=== PATIENT | female | born 1990 | race African-American/Black ===

== ENCOUNTER 2020-03-17 19:25 | Emergency (ER) | payer OTHER ==
[2020-03-17 19:56] VITALS: BP 107/77; PULSE 98; TEMP 97.8; BMI 18.8
[2020-03-17] MEDS ORDERED: SODIUM CHLORIDE 1,000 ML IV STA (21:18)
[2020-03-17 22:18] LABS: EOS % 2.3 % (0-4.5); HEMATOCRIT 29.9 % (32.4-45.2); HEMOGLOBIN 8.9 GM/dL (10.7-15.3); LYMPH % 19.2 % (8-40); MCH 20.5 pg (25.7-33.7); MCHC 29.6 g/dl (32.0-36.0); MEAN CELL VOLUME 69.2 fl (80-96); MEAN PLT VOLUME 7.6 fl (7.5-11.1); MONO % 5.4 % (3.8-10.2); NEUT % 72.1 % (42.8-82.8); PLATELET COUNT 468 K/MM3 (134-434); RBC 4.33 M/mm3 (3.60-5.2); RDW 16.6 % (11.6-15.6); WHITE BLOOD COUNT 14.6 K/mm3 (4.0-10.0)
[2020-03-17 22:28] LABS: POTASSIUM 3.8 mmol/L (3.5-5.1)
[2020-03-17 22:30] LABS: CALCIUM 9.1 mg/dL (8.5-10.1)
[2020-03-17 22:31] LABS: MAGNESIUM 2.2 mg/dL (1.8-2.4)
[2020-03-17 22:34] LABS: CREATININE 0.7 mg/dL (0.55-1.3)
[2020-03-17 22:35] LABS: BILIRUBIN,TOTAL 0.3 mg/dL (0.2-1)
[2020-03-17 22:36] LABS: TOT PROT 9.7 g/dl (6.4-8.2)
[2020-03-17 23:25] LABS: HIV INTERPRETATION NEGATIVE (NEGATIVE)
[2020-03-17] MEDS ORDERED: PIPERACILLIN/TAZOBACTAM 4.5 GM VIAL IVPB ONE (23:45)
[2020-03-17] MEDS ORDERED: VANCOMYCIN 1,000 MG in DEXTROSE 5%-WATER - 250 ML IVPB ONE (23:45)
[2020-03-18] MEDS ORDERED: PIPERACILLIN/TAZOB 4.5 GM 4.5 GM/100 ML BAG IVPB ONE (00:02)
[2020-03-18] MEDS ORDERED: VANCOMYCIN 1 GRAM (PRE-DOCKED) 1,000 MG/250 ML BAG IVPB ONE (00:03)
[2020-03-18 00:42] LABS: EPI CELLS 25 /uL (0-25.1); HYALINE CASTS 4 /uL (0-3.1); PH,URINE 5.5 (5.0-8.0); URINE APPEARANCE CLEAR; URINE BACTERIA 206 /uL (0-1359); URINE BILIRUBIN NEGATIVE (NEGATIVE); URINE COLOR YELLOW; URINE GLUCOSE (UA) NEGATIVE (NEGATIVE); URINE KETONE NEGATIVE (NEGATIVE); URINE LEUK ESTERASE NEGATIVE (NEGATIVE); URINE NITRITE NEGATIVE (NEGATIVE); URINE PROTEIN 1+ (NEGATIVE); URINE RBC 5 /uL (0-23.9); URINE WBC 57 /uL (0-25.8)
== END 2020-03-18 01:43 | disposition left against medical advice (07) ==
LOC: JER 19:25
PROC: 3E03329 Introduction of Other Anti-infective into Peripheral Vein, Percutaneous Approach (ICD-10-PCS; principal; 2020-03-17)
PROC: 3E03329 Introduction of Other Anti-infective into Peripheral Vein, Percutaneous Approach (ICD-10-PCS; 2020-03-17)
PROC: 3E0337Z Introduction of Electrolytic and Water Balance Substance into Peripheral Vein, Percutaneous Approach (ICD-10-PCS; 2020-03-17)
DX: L03.317 Cellulitis of buttock (principal); K61.0 Anal abscess; N61.1 Abscess of the breast and nipple
CPT/HCPCS: 36415; 74177-TC; 80053; 81003; 83735; 84703; 85025; 87040; 87070; 87076; 87186; 87205; 87389; 99285-25; Q9967

== ENCOUNTER 2020-06-30 04:13 | Inpatient (IN) | payer OTHER ==
[2020-06-30] MEDS ORDERED: CLINDAMYCIN IVPB 300 MG in DEXTROSE 5%-WATER - 48 ML IVPB ONE (05:00)
[2020-06-30] MEDS ORDERED: CLINDAMYCIN 600MG PREMIX IVPB 600 MG/50 ML BAG IVPB ONE ×4 (05:18→15:46)
[2020-06-30] MEDS ORDERED: ONDANSETRON 4 MG/2 ML VIAL IVPUSH ONE (05:20)
[2020-06-30] MEDS ORDERED: morphine CARPU-JECT 4 MG/1 ML DISP.SYRIN IVPUSH ONE (05:20)
[2020-06-30] MEDS ORDERED: ONDANSETRON 4 MG/2 ML VIAL ONE (05:22)
[2020-06-30] MEDS ORDERED: morphine SULFATE 4 MG/ML VIAL ONE (05:22)
[2020-06-30] MEDS ORDERED: SODIUM CHLORIDE 0.9% 500 ML INFUS.BAG IV ONE (05:23)
[2020-06-30 05:51] LABS: BASO % 0.5 % (0-2.0); EOS % 1.2 % (0-4.5); HEMATOCRIT 25.7 % (32.4-45.2); MEAN CELL VOLUME 67.6 fl (80-96); MEAN PLT VOLUME 7.2 fl (7.5-11.1); MONO % 3.5 % (3.8-10.2); NEUT % 85.8 % (42.8-82.8); PLATELET COUNT 591 K/MM3 (134-434); RBC 3.81 M/mm3 (3.60-5.2); RDW 16.5 % (11.6-15.6); WHITE BLOOD COUNT 22.2 K/mm3 (4.0-10.0)
[2020-06-30 06:11] LABS: POTASSIUM 3.9 mmol/L (3.5-5.1)
[2020-06-30 06:12] LABS: ALBUMIN 2.7 g/dl (3.4-5.0); BLOOD UREA NITROGEN 10.1 mg/dL (7-18); CALCIUM 9.2 mg/dL (8.5-10.1); INR 1.47 (0.83-1.09); PROTHROMBIN TIME (PATIENT) 17.9 SEC (9.7-13.0)
[2020-06-30 06:15] LABS: ACTIVATED PTT 31.2 SECONDS (25.2-36.5); CREATININE 0.8 mg/dL (0.55-1.3)
[2020-06-30 06:17] LABS: BILIRUBIN,TOTAL 0.4 mg/dL (0.2-1); TOT PROT 9.9 g/dl (6.4-8.2)
[2020-06-30] MEDS ORDERED: ENOXAPARIN NA (PORCINE) 40 MG/0.4 ML DISP.SYRIN SQ ONE (09:01)
[2020-06-30] MEDS: LACTATED RINGERS SOLUTION 1,000 ML IV SCH (09:25)
[2020-06-30] MEDS: ACETAMINOPHEN 1000 MG/100 ML VIAL (NON FORMULARY) IVPB PRN ×2 (09:26→23:04)
[2020-06-30] MEDS: CLINDAMYCIN 600MG PREMIX IVPB 600 MG/50 ML BAG IVPB SCH ×4 (09:26→21:07)
[2020-06-30] MEDS: ENOXAPARIN NA (PORCINE) 40 MG/0.4 ML DISP.SYRIN SQ SCH (09:26)
[2020-06-30 12:04] LABS: ANISOCYTOSIS 1+; MACROCYTOSIS 0; PLATELET ESTIMATE INCREASED; ROULEAU 1+
[2020-06-30] MEDS ORDERED: SERTRALINE HCL 50 MG TABLET (FP) ONE (12:25)
[2020-06-30] MEDS: SERTRALINE HCL 25 MG TABLET (FP) PO SCH (12:34)
[2020-06-30] MEDS: PIPERACILLIN/TAZOB 3.375 GM 3.375 GM in DEXTROSE 5%-WATER - 50 ML IVPB SCH (18:21)
[2020-07-01] MEDS ORDERED: PIPERACILLIN/TAZOBACTAM 3.375 GM VIAL IVPB ONE ×3 (02:11→17:14)
[2020-07-01] MEDS ORDERED: DEXTROSE 5%-WATER - 50 ML IVPB ONE ×3 (02:11→17:14)
[2020-07-01] MEDS: PIPERACILLIN/TAZOB 3.375 GM 3.375 GM in DEXTROSE 5%-WATER - 50 ML IVPB SCH ×3 (02:38→17:22)
[2020-07-01] MEDS: CLINDAMYCIN 600MG PREMIX IVPB 600 MG/50 ML BAG IVPB SCH ×4 (02:38→23:30)
[2020-07-01] MEDS ORDERED: LIDO 2%/EPI 1:200000 PRESRVFRE (20 ML SDVIAL) INF ONE (09:00)
[2020-07-01] MEDS: SERTRALINE HCL 25 MG TABLET (FP) PO SCH (09:17)
[2020-07-01] MEDS: ENOXAPARIN NA (PORCINE) 40 MG/0.4 ML DISP.SYRIN SQ SCH (09:17)
[2020-07-01] MEDS: LACTATED RINGERS SOLUTION 1,000 ML IV SCH (10:07)
[2020-07-01] MEDS: ACETAMINOPHEN 325 MG TABLET (FP) PO PRN ×2 (10:36→19:01)
[2020-07-01 11:49] LABS: BASO % 0.5 % (0-2.0); EOS % 1.6 % (0-4.5); HEMATOCRIT 21.7 % (32.4-45.2); LYMPH % 10.5 % (8-40); MCH 20.6 pg (25.7-33.7); MCHC 30.2 g/dl (32.0-36.0); MEAN PLT VOLUME 7.6 fl (7.5-11.1); NEUT % 82.4 % (42.8-82.8); PLATELET COUNT 447 K/MM3 (134-434); RDW 16.3 % (11.6-15.6); WHITE BLOOD COUNT 16.8 K/mm3 (4.0-10.0)
[2020-07-01 11:53] LABS: HEMOGLOBIN 6.6 GM/dL (10.7-15.3)
[2020-07-01 12:21] LABS: CALCIUM 8.4 mg/dL (8.5-10.1)
[2020-07-01 12:22] LABS: BLOOD UREA NITROGEN 6.8 mg/dL (7-18); MAGNESIUM 1.8 mg/dL (1.8-2.4)
[2020-07-01 12:25] LABS: CREATININE 0.6 mg/dL (0.55-1.3); PHOSPHOROUS 2.9 mg/dL (2.5-4.9)
[2020-07-01 12:26] LABS: BILIRUBIN,TOTAL 0.4 mg/dL (0.2-1)
[2020-07-01 12:29] LABS: ALBUMIN 2.1 g/dl (3.4-5.0); TOT PROT 7.9 g/dl (6.4-8.2)
[2020-07-01 13:52] LABS: INR 1.73 (0.83-1.09)
[2020-07-01 15:12] VITALS: BMI 18.2
[2020-07-01] MEDS ORDERED: ONDANSETRON 4 MG/2 ML VIAL IVPUSH ONE (16:10)
[2020-07-01 16:19] LABS: HEMATOCRIT 21.5 % (32.4-45.2); MCH 20.7 pg (25.7-33.7); MCHC 30.6 g/dl (32.0-36.0); MEAN CELL VOLUME 67.7 fl (80-96); MEAN PLT VOLUME 7.5 fl (7.5-11.1); PLATELET COUNT 455 K/MM3 (134-434); RBC 3.17 M/mm3 (3.60-5.2); RDW 16.2 % (11.6-15.6); WHITE BLOOD COUNT 16.5 K/mm3 (4.0-10.0)
[2020-07-01 16:39] LABS: HEMOGLOBIN 6.6 GM/dL (10.7-15.3)
[2020-07-01] MEDS ORDERED: ONDANSETRON 4 MG/2 ML VIAL IVPB PRN (19:59)
[2020-07-01] MEDS ORDERED: ZOLPIDEM TARTRATE 5 MG TABLET PO PRN (19:59)
[2020-07-01] MEDS ORDERED: oxyCODONE HCL 5 MG TABLET PO PRN (20:00)
[2020-07-01] MEDS ORDERED: ACETAMINOPHEN 325 MG TABLET (FP) PO PRN (20:01)
[2020-07-01] MEDS ORDERED: ONDANSETRON 4 MG/2 ML VIAL IVPUSH PRN (20:18)
[2020-07-02] MEDS: PIPERACILLIN/TAZOB 3.375 GM 3.375 GM in DEXTROSE 5%-WATER - 50 ML IVPB SCH ×3 (02:00→18:13)
[2020-07-02] MEDS: CLINDAMYCIN 600MG PREMIX IVPB 600 MG/50 ML BAG IVPB SCH ×4 (03:00→21:25)
[2020-07-02] MEDS ORDERED: DEXTROSE 5%-WATER - 50 ML IVPB ONE ×3 (04:18→17:33)
[2020-07-02] MEDS ORDERED: PIPERACILLIN/TAZOBACTAM 3.375 GM VIAL IVPB ONE ×3 (04:18→17:33)
[2020-07-02 08:40] LABS: HEMATOCRIT 26.4 % (32.4-45.2); HEMOGLOBIN 8.3 GM/dL (10.7-15.3); MCH 22.6 pg (25.7-33.7); MCHC 31.6 g/dl (32.0-36.0); MEAN CELL VOLUME 71.4 fl (80-96); MEAN PLT VOLUME 7.5 fl (7.5-11.1); PLATELET COUNT 419 K/MM3 (134-434); WHITE BLOOD COUNT 15.7 K/mm3 (4.0-10.0)
[2020-07-02 09:04] LABS: CALCIUM 8.1 mg/dL (8.5-10.1)
[2020-07-02 09:05] LABS: BLOOD UREA NITROGEN 6.6 mg/dL (7-18)
[2020-07-02 09:08] LABS: CREATININE 0.7 mg/dL (0.55-1.3); MAGNESIUM 1.6 mg/dL (1.8-2.4); PHOSPHOROUS 3.2 mg/dL (2.5-4.9)
[2020-07-02] MEDS: LACTATED RINGERS SOLUTION 1,000 ML IV SCH (09:23)
[2020-07-02] MEDS: ENOXAPARIN NA (PORCINE) 40 MG/0.4 ML DISP.SYRIN SQ SCH (09:24)
[2020-07-02] MEDS: SERTRALINE HCL 25 MG TABLET (FP) PO SCH (09:25)
[2020-07-02] MEDS ORDERED: MULTIVITAMINS THER W-MINERALS COMBO TABLET (FP) PO SCH (10:00)
[2020-07-02] MEDS ORDERED: IRON SUCROSE INJECTION 200 MG in SODIUM CHLORIDE 90 ML IVPB ONE ×3 (10:20→16:17)
[2020-07-02] MEDS ORDERED: BUPIVACAINE HCL 50 ML ONE (11:22)
[2020-07-02] MEDS ORDERED: LIDOCAINE HCL 1%, 10 MG/ML (20ML VIAL) ONE (11:22)
[2020-07-02] MEDS ORDERED: DEXAMETHASONE SOD PHOSPHATE 4 MG/1 ML VIAL ONE (11:35)
[2020-07-02] MEDS ORDERED: ROCURONIUM BROMIDE 50 MG/5 ML SYRINGE ONE (11:35)
[2020-07-02] MEDS ORDERED: LIDOCAINE HCL/PF 2% SDV 5ML VIAL ONE (11:35)
[2020-07-02] MEDS ORDERED: PROPOFOL 20 ML ONE (11:35)
[2020-07-02] MEDS ORDERED: MIDAZOLAM HCL 2 MG/2 ML SINGLE DOSE VIAL ONE (11:36)
[2020-07-02] MEDS ORDERED: LIDOCAINE HCL 1% PRESERVATIVE FREE - 30ML VIAL IJ ONE (12:07)
[2020-07-02] MEDS ORDERED: BUPIVACAINE HCL/PF 0.5% (5 MG/ML) 30 ML VIAL IJ ONE (12:07)
[2020-07-02] MEDS ORDERED: IRON SUCROSE INJECTION 100 MG in SODIUM CHLORIDE 95 ML IVPB ONE (12:32)
[2020-07-02] MEDS ORDERED: ACETAMINOPHEN 325 MG TABLET (FP) PO PRN (12:44)
[2020-07-02] MEDS ORDERED: ONDANSETRON 4 MG/2 ML VIAL IVPUSH PRN (12:44)
[2020-07-02] MEDS ORDERED: LACTATED RINGERS SOLUTION 1,000 ML IV SCH (12:44)
[2020-07-02] MEDS ORDERED: MAGNESIUM SULF 50% (8.12 MEQ/2 ML-1 GM VIAL) IVPB ONE (12:45)
[2020-07-02] MEDS: oxyCODONE HCL 5 MG TABLET PO PRN ×2 (14:35→21:19)
[2020-07-03] MEDS ORDERED: PIPERACILLIN/TAZOBACTAM 3.375 GM VIAL IVPB ONE ×3 (01:27→18:35)
[2020-07-03] MEDS ORDERED: DEXTROSE 5%-WATER - 50 ML IVPB ONE ×3 (01:27→18:35)
[2020-07-03] MEDS: PIPERACILLIN/TAZOB 3.375 GM 3.375 GM in DEXTROSE 5%-WATER - 50 ML IVPB SCH ×3 (02:00→18:46)
[2020-07-03] MEDS: CLINDAMYCIN 600MG PREMIX IVPB 600 MG/50 ML BAG IVPB SCH ×4 (03:00→20:31)
[2020-07-03] MEDS: oxyCODONE HCL 5 MG TABLET PO PRN ×3 (08:11→22:19)
[2020-07-03 08:22] LABS: HEMATOCRIT 25.9 % (32.4-45.2); HEMOGLOBIN 8.3 GM/dL (10.7-15.3); MCH 22.9 pg (25.7-33.7); MEAN CELL VOLUME 71.6 fl (80-96); MEAN PLT VOLUME 7.5 fl (7.5-11.1); PLATELET COUNT 427 K/MM3 (134-434); RBC 3.62 M/mm3 (3.60-5.2); RDW 19.3 % (11.6-15.6); WHITE BLOOD COUNT 18.2 K/mm3 (4.0-10.0)
[2020-07-03 08:26] LABS: POTASSIUM 4.2 mmol/L (3.5-5.1)
[2020-07-03 08:38] LABS: ALBUMIN 1.9 g/dl (3.4-5.0); CALCIUM 8.2 mg/dL (8.5-10.1); MAGNESIUM 2.1 mg/dL (1.8-2.4)
[2020-07-03 08:41] LABS: PHOSPHOROUS 2.6 mg/dL (2.5-4.9)
[2020-07-03 08:42] LABS: CREATININE 0.8 mg/dL (0.55-1.3)
[2020-07-03 08:43] LABS: BILIRUBIN,TOTAL 0.5 mg/dL (0.2-1); TOT PROT 7.3 g/dl (6.4-8.2)
[2020-07-03] MEDS: MULTIVITAMINS THER W-MINERALS COMBO TABLET (FP) PO SCH (10:17)
[2020-07-03] MEDS: SERTRALINE HCL 25 MG TABLET (FP) PO SCH (10:17)
[2020-07-03] MEDS: ENOXAPARIN NA (PORCINE) 40 MG/0.4 ML DISP.SYRIN SQ SCH (10:18)
[2020-07-03] MEDS ORDERED: IRON SUCROSE INJECTION 100 MG in SODIUM CHLORIDE 95 ML IVPB ONE (12:32)
[2020-07-04] MEDS ORDERED: DEXTROSE 5%-WATER - 50 ML IVPB ONE ×3 (01:01→16:56)
[2020-07-04] MEDS ORDERED: PIPERACILLIN/TAZOBACTAM 3.375 GM VIAL IVPB ONE ×3 (01:01→16:56)
[2020-07-04] MEDS: ZOLPIDEM TARTRATE 5 MG TABLET PO PRN ×2 (01:02→23:47)
[2020-07-04] MEDS: PIPERACILLIN/TAZOB 3.375 GM 3.375 GM in DEXTROSE 5%-WATER - 50 ML IVPB SCH ×3 (01:02→17:00)
[2020-07-04] MEDS: CLINDAMYCIN 600MG PREMIX IVPB 600 MG/50 ML BAG IVPB SCH ×4 (02:35→21:39)
[2020-07-04 09:50] LABS: BASO % 0.6 % (0-2.0); EOS % 2.7 % (0-4.5); HEMATOCRIT 25.8 % (32.4-45.2); LYMPH % 18.9 % (8-40); MCH 22.6 pg (25.7-33.7); MCHC 31.1 g/dl (32.0-36.0); MEAN CELL VOLUME 72.5 fl (80-96); MEAN PLT VOLUME 7.6 fl (7.5-11.1); MONO % 5.2 % (3.8-10.2); NEUT % 72.6 % (42.8-82.8); PLATELET COUNT 412 K/MM3 (134-434); RBC 3.56 M/mm3 (3.60-5.2); RDW 19.7 % (11.6-15.6); WHITE BLOOD COUNT 14.6 K/mm3 (4.0-10.0)
[2020-07-04] MEDS: SERTRALINE HCL 25 MG TABLET (FP) PO SCH (09:57)
[2020-07-04] MEDS: oxyCODONE HCL 5 MG TABLET PO PRN ×3 (09:57→21:39)
[2020-07-04] MEDS: MULTIVITAMINS THER W-MINERALS COMBO TABLET (FP) PO SCH (09:57)
[2020-07-04] MEDS: ENOXAPARIN NA (PORCINE) 40 MG/0.4 ML DISP.SYRIN SQ SCH (09:57)
[2020-07-04 10:25] LABS: POTASSIUM 4.2 mmol/L (3.5-5.1)
[2020-07-04 10:27] LABS: CALCIUM 8.5 mg/dL (8.5-10.1)
[2020-07-04 10:31] LABS: CREATININE 0.7 mg/dL (0.55-1.3); PHOSPHOROUS 3.7 mg/dL (2.5-4.9)
[2020-07-04 10:32] LABS: BILIRUBIN,TOTAL 0.2 mg/dL (0.2-1); TOT PROT 7.4 g/dl (6.4-8.2)
[2020-07-05] MEDS ORDERED: PIPERACILLIN/TAZOBACTAM 3.375 GM VIAL IVPB ONE ×3 (03:01→16:08)
[2020-07-05] MEDS ORDERED: DEXTROSE 5%-WATER - 50 ML IVPB ONE ×3 (03:01→16:08)
[2020-07-05] MEDS: PIPERACILLIN/TAZOB 3.375 GM 3.375 GM in DEXTROSE 5%-WATER - 50 ML IVPB SCH ×3 (03:02→17:09)
[2020-07-05] MEDS: CLINDAMYCIN 600MG PREMIX IVPB 600 MG/50 ML BAG IVPB SCH ×4 (03:54→20:08)
[2020-07-05] MEDS: oxyCODONE HCL 5 MG TABLET PO PRN ×3 (08:43→20:07)
[2020-07-05] MEDS: MULTIVITAMINS THER W-MINERALS COMBO TABLET (FP) PO SCH (09:01)
[2020-07-05] MEDS: ENOXAPARIN NA (PORCINE) 40 MG/0.4 ML DISP.SYRIN SQ SCH (09:01)
[2020-07-05] MEDS: SERTRALINE HCL 25 MG TABLET (FP) PO SCH (09:01)
[2020-07-05 09:02] LABS: EOS % 5.1 % (0-4.5); HEMOGLOBIN 8.2 GM/dL (10.7-15.3); LYMPH % 20.4 % (8-40); MCH 22.9 pg (25.7-33.7); MCHC 31.5 g/dl (32.0-36.0); MEAN CELL VOLUME 72.7 fl (80-96); MEAN PLT VOLUME 7.6 fl (7.5-11.1); MONO % 5.5 % (3.8-10.2); PLATELET COUNT 415 K/MM3 (134-434); RBC 3.58 M/mm3 (3.60-5.2); RDW 20.4 % (11.6-15.6); WHITE BLOOD COUNT 11.8 K/mm3 (4.0-10.0)
[2020-07-05 09:20] LABS: POTASSIUM 4.4 mmol/L (3.5-5.1)
[2020-07-05 09:26] LABS: ALBUMIN 2.1 g/dl (3.4-5.0); BLOOD UREA NITROGEN 13.2 mg/dL (7-18); CALCIUM 8.5 mg/dL (8.5-10.1); MAGNESIUM 2.1 mg/dL (1.8-2.4)
[2020-07-05 09:28] LABS: CREATININE 0.6 mg/dL (0.55-1.3)
[2020-07-05 09:29] LABS: PHOSPHOROUS 3.6 mg/dL (2.5-4.9)
[2020-07-05 09:30] LABS: BILIRUBIN,TOTAL 0.3 mg/dL (0.2-1); TOT PROT 7.6 g/dl (6.4-8.2)
[2020-07-05] MEDS: ZOLPIDEM TARTRATE 5 MG TABLET PO PRN (23:41)
[2020-07-06] MEDS ORDERED: PIPERACILLIN/TAZOBACTAM 3.375 GM VIAL IVPB ONE ×3 (00:46→16:49)
[2020-07-06] MEDS ORDERED: DEXTROSE 5%-WATER - 50 ML IVPB ONE ×3 (00:46→16:49)
[2020-07-06] MEDS: PIPERACILLIN/TAZOB 3.375 GM 3.375 GM in DEXTROSE 5%-WATER - 50 ML IVPB SCH ×3 (02:07→18:26)
[2020-07-06] MEDS: oxyCODONE HCL 5 MG TABLET PO PRN ×2 (08:22→13:22)
[2020-07-06] MEDS: ENOXAPARIN NA (PORCINE) 40 MG/0.4 ML DISP.SYRIN SQ SCH (09:03)
[2020-07-06] MEDS: MULTIVITAMINS THER W-MINERALS COMBO TABLET (FP) PO SCH (09:03)
[2020-07-06] MEDS: SERTRALINE HCL 25 MG TABLET (FP) PO SCH ×2 (09:03→09:08)
[2020-07-06 09:04] LABS: BASO % 1.1 % (0-2.0); EOS % 5.6 % (0-4.5); HEMATOCRIT 27.2 % (32.4-45.2); HEMOGLOBIN 8.5 GM/dL (10.7-15.3); LYMPH % 18.4 % (8-40); MCHC 31.4 g/dl (32.0-36.0); MEAN PLT VOLUME 7.4 fl (7.5-11.1); MONO % 5.2 % (3.8-10.2); NEUT % 69.7 % (42.8-82.8); PLATELET COUNT 428 K/MM3 (134-434); RBC 3.72 M/mm3 (3.60-5.2); RDW 21.4 % (11.6-15.6); WHITE BLOOD COUNT 13.3 K/mm3 (4.0-10.0)
[2020-07-06 09:24] LABS: POTASSIUM 4.2 mmol/L (3.5-5.1)
[2020-07-06 09:37] LABS: ALBUMIN 2.4 g/dl (3.4-5.0); BLOOD UREA NITROGEN 14.8 mg/dL (7-18); CALCIUM 8.8 mg/dL (8.5-10.1); MAGNESIUM 2.1 mg/dL (1.8-2.4)
[2020-07-06 09:40] LABS: CREATININE 0.7 mg/dL (0.55-1.3); PHOSPHOROUS 3.4 mg/dL (2.5-4.9)
[2020-07-06 09:42] LABS: BILIRUBIN,TOTAL 0.3 mg/dL (0.2-1); TOT PROT 8.2 g/dl (6.4-8.2)
[2020-07-06] MEDS ORDERED: IRON SUCROSE INJECTION 200 MG in SODIUM CHLORIDE 90 ML IVPB ONE (14:16)
[2020-07-06 14:30] VITALS: BP 101/59; PULSE 55; TEMP 97.8
[2020-07-06] MEDS ORDERED: FERRIC CARBOXYMALTOSE 750 MG in SODIUM CHLORIDE 250 ML IVPB ONE (14:38)
== END 2020-07-06 21:07 | disposition home or self-care (01) | DRG 364 ==
LOC: JER 04:13 → JERBED 06:44 → J6S 19:10
PROVIDERS: ADMIT Internal Medicine; ATTEND Internal Medicine
PROC: 0W9F0ZZ Drainage of Abdominal Wall, Open Approach (ICD-10-PCS; principal; 2020-07-02 12:00)
DX: L02.211 Cutaneous abscess of abdominal wall (principal); E43 Unspecified severe protein-calorie malnutrition; L73.2 Hidradenitis suppurativa; N61.1 Abscess of the breast and nipple; D50.9 Iron deficiency anemia, unspecified; F32.9 Major depressive disorder, single episode, unspecified; Z68.1 Body mass index [BMI] 19.9 or less, adult; D63.8 Anemia in other chronic diseases classified elsewhere; R19.7 Diarrhea, unspecified; F12.90 Cannabis use, unspecified, uncomplicated
CPT/HCPCS: 36415; 36430; 36511; 71045-TC-FY; 71250-TC; 74176-TC; 80048; 80053; 82607; 82728; 82746; 83010; 83036; 83540; 83550; 83605; 83735; 84100; 84703; 85025; 85027; 85045; 85610; 85730; 86850; 86880; 86900; 86901; 86922; 87040; 87070; 87076; 87077; 87086; 87186; 87205; 93005; 93010; 94760; 99285-25; C9803; J0131; J1439; J1756; P9038; P9058; U0003

== ENCOUNTER 2020-10-07 22:11 | Inpatient (IN) | payer OTHER ==
[2020-10-07 23:51] LABS: BASO % 0.8 % (0-2.0); EOS % 4.5 % (0-4.5); HEMATOCRIT 28.5 % (32.4-45.2); HEMOGLOBIN 9.5 GM/dL (10.7-15.3); LYMPH % 18.5 % (8-40); MCHC 33.2 g/dl (32.0-36.0); MEAN CELL VOLUME 84.3 fl (80-96); MEAN PLT VOLUME 8.1 fl (7.5-11.1); MONO % 5.5 % (3.8-10.2); NEUT % 70.7 % (42.8-82.8); PLATELET COUNT 353 K/MM3 (134-434); RBC 3.38 M/mm3 (3.60-5.2); RDW 15.1 % (11.6-15.6)
[2020-10-08 00:10] LABS: CHLORIDE 107 mmol/L (98-107); SODIUM 139 mmol/L (136-145)
[2020-10-08 00:12] LABS: ALBUMIN 2.6 g/dl (3.4-5.0); ANION GAP 7 MMOL/L (8-16); BLOOD UREA NITROGEN 11.4 mg/dL (7-18); CALCIUM 8.9 mg/dL (8.5-10.1); CO2 26 mmol/L (21-32)
[2020-10-08 00:13] LABS: GLUCOSE,RANDOM 107 mg/dL (74-106)
[2020-10-08 00:14] LABS: INR 1.24 (0.83-1.09); PROTHROMBIN TIME (PATIENT) 14.9 SEC (9.7-13.0)
[2020-10-08 00:15] LABS: SGPT/ALT 17 U/L (13-61)
[2020-10-08 00:16] LABS: ACTIVATED PTT 31.6 SECONDS (25.2-36.5); CREATININE 0.7 mg/dL (0.55-1.3); SGOT/AST 14 U/L (15-37)
[2020-10-08 00:17] LABS: BILIRUBIN,TOTAL 0.2 mg/dL (0.2-1)
[2020-10-08 00:18] LABS: ALK PHOS 91 U/L (45-117)
[2020-10-08 05:41] VITALS: BMI 21.2
[2020-10-08] MEDS ORDERED: DEXTROSE 5%-0.45% SALINE 1,000 ML IV SCH ×2 (09:00→15:09)
[2020-10-08] MEDS ORDERED: PIPERACILLIN/TAZOB 3.375 GM 3.375 GM in DEXTROSE 5%-WATER - 50 ML IVPB SCH ×3 (09:30→21:00)
[2020-10-08] MEDS ORDERED: VANCOMYCIN 1 GM in D5W (PRE-DOCKED) 1,000 MG/250 ML IVPB ONE (09:30)
[2020-10-08 09:43] LABS: IRON SERUM 23 ug/dL (50-175)
[2020-10-08 09:44] LABS: TOTAL IRON BINDING CAPACITY 202 ug/dL (250-450)
[2020-10-08] MEDS ORDERED: ENOXAPARIN NA (PORCINE) 40 MG/0.4 ML DISP.SYRIN SQ SCH (10:00)
[2020-10-08] MEDS ORDERED: ACETAMINOPHEN 1000 MG/100 ML VIAL (NON FORMULARY) IVPB PRN (10:11)
[2020-10-08] MEDS ORDERED: PIPERACILLIN/TAZOBACTAM 3.375 GM VIAL IVPB ONE ×2 (10:14→18:24)
[2020-10-08] MEDS ORDERED: DEXTROSE 5%-WATER - 50 ML IVPB ONE ×2 (10:14→18:24)
[2020-10-08] MEDS ORDERED: LIDOCAINE HCL/PF 2% SDV 5ML VIAL ONE (10:47)
[2020-10-08] MEDS ORDERED: PROPOFOL 20 ML ONE (10:48)
[2020-10-08] MEDS ORDERED: MIDAZOLAM HCL 2 MG/2 ML SINGLE DOSE VIAL ONE (10:48)
[2020-10-08] MEDS ORDERED: LIDOCAINE 1%/EPI 1:100000 (50 ML MULTI DOSE VIAL) ONE (11:05)
[2020-10-08] MEDS ORDERED: GENTAMICIN SO4 80 MG/2 ML VIAL ONE (11:50)
[2020-10-08] MEDS ORDERED: METHYLENE BLUE 50 MG/10 ML AMPUL ONE (12:07)
[2020-10-08] MEDS ORDERED: LIDOCAINE 1%/EPI 1:100000 (20 ML MULTI DOSE VIAL) INF ONE (12:51)
[2020-10-08] MEDS ORDERED: HYDROmorphone HCl 2 MG/ML VIAL ONE (12:52)
[2020-10-08] MEDS ORDERED: BACITRACIN 50,000 UNITS VIAL NR ONE (12:52)
[2020-10-08] MEDS ORDERED: GENTAMICIN SO4 80 MG/2 ML VIAL IVPB ONE (12:52)
[2020-10-08] MEDS ORDERED: ACETAMINOPHEN INJECTION 100 ML IVPB ONE (12:54)
[2020-10-08] MEDS ORDERED: BACITRACIN 15 GM TUBE TOPICAL OINTMENT ONE (14:26)
[2020-10-08 15:01] LABS: CHOLESTEROL 110 mg/dL (50-200)
[2020-10-08 15:02] LABS: TRIGLYCERIDES 61 mg/dL (0-150)
[2020-10-08 15:03] LABS: LDL CHOLESTEROL (ONLY SJRH) 56 mg/dL (5-100)
[2020-10-08] MEDS ORDERED: oxyCODONE HCL 5 MG TABLET PO PRN (15:06)
[2020-10-08 15:07] LABS: HDL CHOLESTEROL 46 mg/dL (40-60)
[2020-10-08] MEDS: oxyCODONE HCL 5 MG TABLET PO PRN ×3 (15:45→20:50)
[2020-10-08] MEDS ORDERED: oxyCODONE HCL 5 MG TABLET ONE (15:48)
[2020-10-08] MEDS: LACTATED RINGERS SOLUTION 1,000 ML IV SCH (16:54)
[2020-10-08] MEDS: PIPERACILLIN/TAZOB 3.375 GM 3.375 GM in DEXTROSE 5%-WATER - 50 ML IVPB SCH (18:33)
[2020-10-08] MEDS: ACETAMINOPHEN 1000 MG/100 ML VIAL (NON FORMULARY) IVPB PRN (20:32)
[2020-10-08] MEDS ORDERED: ONDANSETRON 4 MG/2 ML VIAL IVPUSH ONE (23:01)
[2020-10-09] MEDS ORDERED: PIPERACILLIN/TAZOBACTAM 3.375 GM VIAL IVPB ONE ×3 (00:30→17:42)
[2020-10-09] MEDS ORDERED: DEXTROSE 5%-WATER - 50 ML IVPB ONE ×3 (00:30→17:42)
[2020-10-09] MEDS: oxyCODONE HCL 5 MG TABLET PO PRN ×6 (00:57→20:31)
[2020-10-09] MEDS: PIPERACILLIN/TAZOB 3.375 GM 3.375 GM in DEXTROSE 5%-WATER - 50 ML IVPB SCH ×3 (01:00→18:02)
[2020-10-09] MEDS: ACETAMINOPHEN 1000 MG/100 ML VIAL (NON FORMULARY) IVPB PRN ×3 (02:42→18:44)
[2020-10-09] MEDS: LACTATED RINGERS SOLUTION 1,000 ML IV SCH ×2 (03:09→15:40)
[2020-10-09] MEDS: ONDANSETRON 4 MG/2 ML VIAL IVPUSH PRN (08:29)
[2020-10-09 08:36] LABS: BASO % 0.5 % (0-2.0); EOS % 3.6 % (0-4.5); HEMATOCRIT 26.1 % (32.4-45.2); HEMOGLOBIN 8.7 GM/dL (10.7-15.3); LYMPH % 16.9 % (8-40); MCH 28.5 pg (25.7-33.7); MCHC 33.1 g/dl (32.0-36.0); MEAN CELL VOLUME 85.9 fl (80-96); MEAN PLT VOLUME 7.4 fl (7.5-11.1); MONO % 5.8 % (3.8-10.2); NEUT % 73.2 % (42.8-82.8); PLATELET COUNT 279 K/MM3 (134-434); RBC 3.04 M/mm3 (3.60-5.2); RDW 14.8 % (11.6-15.6); WHITE BLOOD COUNT 12.8 K/mm3 (4.0-10.0)
[2020-10-09 09:00] LABS: ALBUMIN 2.3 g/dl (3.4-5.0); CALCIUM 8.6 mg/dL (8.5-10.1)
[2020-10-09 09:03] LABS: BLOOD UREA NITROGEN 6.1 mg/dL (7-18); CREATININE 0.6 mg/dL (0.55-1.3)
[2020-10-09 09:05] LABS: BILIRUBIN,TOTAL 0.4 mg/dL (0.2-1); TOT PROT 6.8 g/dl (6.4-8.2)
[2020-10-09] MEDS: ENOXAPARIN NA (PORCINE) 40 MG/0.4 ML DISP.SYRIN SQ SCH (09:14)
[2020-10-09] MEDS: METOCLOPRAMIDE HCL INJECTION 10 MG/2 ML VIAL IVPUSH SCH ×3 (10:43→20:54)
[2020-10-09] MEDS ORDERED: VANCOMYCIN 1 GM in D5W (PRE-DOCKED) 1,000 MG/250 ML IVPB SCH (12:00)
[2020-10-09] MEDS: VANCOMYCIN 1 GM in D5W (PRE-DOCKED) 1,000 MG/250 ML IVPB SCH (13:50)
[2020-10-10] MEDS ORDERED: PIPERACILLIN/TAZOBACTAM 3.375 GM VIAL IVPB ONE ×3 (00:12→18:10)
[2020-10-10] MEDS ORDERED: DEXTROSE 5%-WATER - 50 ML IVPB ONE ×3 (00:12→18:10)
[2020-10-10] MEDS: oxyCODONE HCL 5 MG TABLET PO PRN ×5 (00:49→23:59)
[2020-10-10] MEDS: PIPERACILLIN/TAZOB 3.375 GM 3.375 GM in DEXTROSE 5%-WATER - 50 ML IVPB SCH ×3 (01:35→18:16)
[2020-10-10] MEDS: METOCLOPRAMIDE HCL INJECTION 10 MG/2 ML VIAL IVPUSH SCH ×3 (03:14→15:51)
[2020-10-10] MEDS: ONDANSETRON 4 MG/2 ML VIAL IVPUSH PRN (09:00)
[2020-10-10] MEDS: ENOXAPARIN NA (PORCINE) 40 MG/0.4 ML DISP.SYRIN SQ SCH (09:08)
[2020-10-10] MEDS: VANCOMYCIN 1 GM in D5W (PRE-DOCKED) 1,000 MG/250 ML IVPB SCH (12:07)
[2020-10-10 12:13] LABS: BASO % 0.6 % (0-2.0); EOS % 2.9 % (0-4.5); HEMOGLOBIN 8.1 GM/dL (10.7-15.3); MCH 28.7 pg (25.7-33.7); MEAN CELL VOLUME 84.6 fl (80-96); MEAN PLT VOLUME 7.8 fl (7.5-11.1); MONO % 5.4 % (3.8-10.2); NEUT % 79.1 % (42.8-82.8); PLATELET COUNT 273 K/MM3 (134-434); RBC 2.83 M/mm3 (3.60-5.2); RDW 14.7 % (11.6-15.6); WHITE BLOOD COUNT 14.1 K/mm3 (4.0-10.0)
[2020-10-10 12:32] LABS: ALBUMIN 2.1 g/dl (3.4-5.0); CALCIUM 8.4 mg/dL (8.5-10.1)
[2020-10-10 12:33] LABS: BLOOD UREA NITROGEN 6.8 mg/dL (7-18)
[2020-10-10 12:37] LABS: BILIRUBIN,TOTAL 0.3 mg/dL (0.2-1); CREATININE 0.6 mg/dL (0.55-1.3); TOT PROT 6.7 g/dl (6.4-8.2)
[2020-10-10] MEDS: LACTATED RINGERS SOLUTION 1,000 ML IV SCH ×2 (15:51→23:54)
[2020-10-11] MEDS ORDERED: PIPERACILLIN/TAZOBACTAM 3.375 GM VIAL IVPB ONE ×3 (00:59→16:58)
[2020-10-11] MEDS ORDERED: DEXTROSE 5%-WATER - 50 ML IVPB ONE ×3 (01:00→16:58)
[2020-10-11] MEDS: PIPERACILLIN/TAZOB 3.375 GM 3.375 GM in DEXTROSE 5%-WATER - 50 ML IVPB SCH ×3 (01:30→17:10)
[2020-10-11 07:45] LABS: BASO % 0.8 % (0-2.0); EOS % 5.3 % (0-4.5); HEMATOCRIT 22.6 % (32.4-45.2); HEMOGLOBIN 7.6 GM/dL (10.7-15.3); LYMPH % 22.9 % (8-40); MCH 28.4 pg (25.7-33.7); MCHC 33.4 g/dl (32.0-36.0); MEAN CELL VOLUME 84.9 fl (80-96); MEAN PLT VOLUME 7.5 fl (7.5-11.1); MONO % 6.7 % (3.8-10.2); NEUT % 64.3 % (42.8-82.8); PLATELET COUNT 283 K/MM3 (134-434); RBC 2.67 M/mm3 (3.60-5.2); RDW 14.7 % (11.6-15.6); WHITE BLOOD COUNT 12.7 K/mm3 (4.0-10.0)
[2020-10-11 08:18] LABS: BLOOD UREA NITROGEN 5.4 mg/dL (7-18); MAGNESIUM 1.9 mg/dL (1.8-2.4)
[2020-10-11 08:21] LABS: CREATININE 0.7 mg/dL (0.55-1.3)
[2020-10-11 08:22] LABS: BILIRUBIN,TOTAL 0.5 mg/dL (0.2-1); TOT PROT 6.4 g/dl (6.4-8.2)
[2020-10-11] MEDS: ENOXAPARIN NA (PORCINE) 40 MG/0.4 ML DISP.SYRIN SQ SCH (09:22)
[2020-10-11] MEDS ORDERED: ONDANSETRON 4 MG/2 ML VIAL IVPUSH PRN (09:32)
[2020-10-11] MEDS: oxyCODONE HCL 5 MG TABLET PO PRN ×2 (09:36→17:09)
[2020-10-11] MEDS: VANCOMYCIN 1 GM in D5W (PRE-DOCKED) 1,000 MG/250 ML IVPB SCH (13:27)
[2020-10-11] MEDS: LACTATED RINGERS SOLUTION 1,000 ML IV SCH (19:22)
[2020-10-12] MEDS ORDERED: PIPERACILLIN/TAZOBACTAM 3.375 GM VIAL IVPB ONE ×4 (00:51→23:58)
[2020-10-12] MEDS ORDERED: DEXTROSE 5%-WATER - 50 ML IVPB ONE ×4 (00:52→23:59)
[2020-10-12] MEDS: PIPERACILLIN/TAZOB 3.375 GM 3.375 GM in DEXTROSE 5%-WATER - 50 ML IVPB SCH ×3 (01:40→17:47)
[2020-10-12] MEDS: LACTATED RINGERS SOLUTION 1,000 ML IV SCH ×4 (04:05→19:55)
[2020-10-12] MEDS: oxyCODONE HCL 5 MG TABLET PO PRN (04:08)
[2020-10-12 08:12] LABS: BASO % 0.7 % (0-2.0); EOS % 4.2 % (0-4.5); HEMATOCRIT 23.6 % (32.4-45.2); LYMPH % 20.4 % (8-40); MCH 28.7 pg (25.7-33.7); MCHC 33.6 g/dl (32.0-36.0); MEAN CELL VOLUME 85.3 fl (80-96); MEAN PLT VOLUME 7.6 fl (7.5-11.1); MONO % 6.4 % (3.8-10.2); NEUT % 68.3 % (42.8-82.8); PLATELET COUNT 293 K/MM3 (134-434); RBC 2.77 M/mm3 (3.60-5.2); RDW 14.7 % (11.6-15.6); WHITE BLOOD COUNT 12.1 K/mm3 (4.0-10.0)
[2020-10-12 08:24] LABS: ALBUMIN 2.2 g/dl (3.4-5.0); BLOOD UREA NITROGEN 5.2 mg/dL (7-18); CALCIUM 8.6 mg/dL (8.5-10.1); MAGNESIUM 2.1 mg/dL (1.8-2.4)
[2020-10-12 08:27] LABS: CREATININE 0.6 mg/dL (0.55-1.3)
[2020-10-12 08:28] LABS: BILIRUBIN,TOTAL 0.8 mg/dL (0.2-1)
[2020-10-12] MEDS ORDERED: PT OWN MED DRAWER 7, Y5N ONE (09:37)
[2020-10-12] MEDS: ENOXAPARIN NA (PORCINE) 40 MG/0.4 ML DISP.SYRIN SQ SCH (09:43)
[2020-10-12] MEDS: traMADol HCL 50 MG TABLET PO PRN ×2 (09:57→18:05)
[2020-10-12] MEDS: AMINO ACIDS/PROTEIN HYDROLYS 30 ML LIQUID.PKT PO SCH (17:46)
[2020-10-12] MEDS: FERROUS SO4 325 MG TABLET (FP) PO SCH (17:46)
[2020-10-12] MEDS: BACITRACIN 15 GM TUBE TOPICAL OINTMENT TP SCH ×2 (18:07→21:06)
[2020-10-12] MEDS: METOCLOPRAMIDE HCL INJECTION 10 MG/2 ML VIAL IVPUSH PRN (19:50)
[2020-10-12] MEDS: DOCUSATE SODIUM 100 MG CAPSULE (FP) PO SCH (21:05)
[2020-10-13] MEDS: PIPERACILLIN/TAZOB 3.375 GM 3.375 GM in DEXTROSE 5%-WATER - 50 ML IVPB SCH ×3 (01:37→17:19)
[2020-10-13] MEDS: traMADol HCL 50 MG TABLET PO PRN ×2 (01:40→06:23)
[2020-10-13] MEDS: LACTATED RINGERS SOLUTION 1,000 ML IV SCH ×4 (02:45→19:51)
[2020-10-13 07:18] LABS: BASO % 0.8 % (0-2.0); EOS % 4.1 % (0-4.5); HEMATOCRIT 22.7 % (32.4-45.2); HEMOGLOBIN 7.6 GM/dL (10.7-15.3); LYMPH % 24.4 % (8-40); MCH 28.7 pg (25.7-33.7); MCHC 33.6 g/dl (32.0-36.0); MEAN CELL VOLUME 85.5 fl (80-96); MEAN PLT VOLUME 7.6 fl (7.5-11.1); NEUT % 63.7 % (42.8-82.8); PLATELET COUNT 288 K/MM3 (134-434); RBC 2.65 M/mm3 (3.60-5.2); RDW 14.4 % (11.6-15.6)
[2020-10-13 07:45] LABS: ALBUMIN 2.3 g/dl (3.4-5.0); BLOOD UREA NITROGEN 4.2 mg/dL (7-18); CALCIUM 8.8 mg/dL (8.5-10.1); MAGNESIUM 1.9 mg/dL (1.8-2.4)
[2020-10-13 07:48] LABS: CREATININE 0.6 mg/dL (0.55-1.3)
[2020-10-13 07:50] LABS: BILIRUBIN,TOTAL 0.4 mg/dL (0.2-1)
[2020-10-13] MEDS: FERROUS SO4 325 MG TABLET (FP) PO SCH ×3 (08:41→17:19)
[2020-10-13] MEDS: AMINO ACIDS/PROTEIN HYDROLYS 30 ML LIQUID.PKT PO SCH ×3 (08:41→17:19)
[2020-10-13] MEDS ORDERED: DEXTROSE 5%-WATER - 50 ML IVPB ONE ×2 (09:47→17:14)
[2020-10-13] MEDS ORDERED: PIPERACILLIN/TAZOBACTAM 3.375 GM VIAL IVPB ONE ×2 (09:47→17:14)
[2020-10-13] MEDS ORDERED: MULTIVIT-MINERALS ORAL LIQUID PO SCH (10:00)
[2020-10-13] MEDS: ASCORBIC ACID 500 MG TABLET (FP) PO SCH (10:05)
[2020-10-13] MEDS: ENOXAPARIN NA (PORCINE) 40 MG/0.4 ML DISP.SYRIN SQ SCH (10:05)
[2020-10-13] MEDS: MULTIVITAMINS THER W-MINERALS COMBO TABLET (FP) PO SCH (10:05)
[2020-10-13] MEDS: FOLIC ACID 1 MG TABLET (FP) PO SCH (10:05)
[2020-10-13] MEDS: BACITRACIN 15 GM TUBE TOPICAL OINTMENT TP SCH ×2 (10:58→21:26)
[2020-10-13] MEDS: METOCLOPRAMIDE HCL INJECTION 10 MG/2 ML VIAL IVPUSH PRN (11:59)
[2020-10-13] MEDS ORDERED: ACETAMINOPHEN 500 MG TABLET (FP) PO ONE (13:02)
[2020-10-13] MEDS: ACETAMINOPHEN 325 MG TABLET (FP) PO PRN (20:02)
[2020-10-13] MEDS: DOCUSATE SODIUM 100 MG CAPSULE (FP) PO SCH (21:25)
[2020-10-14] MEDS ORDERED: PIPERACILLIN/TAZOBACTAM 3.375 GM VIAL IVPB ONE ×2 (01:08→09:04)
[2020-10-14] MEDS: PIPERACILLIN/TAZOB 3.375 GM 3.375 GM in DEXTROSE 5%-WATER - 50 ML IVPB SCH ×2 (01:14→09:24)
[2020-10-14] MEDS: ACETAMINOPHEN 325 MG TABLET (FP) PO PRN ×2 (01:51→09:23)
[2020-10-14 08:33] LABS: BASO % 1.2 % (0-2.0); EOS % 5.3 % (0-4.5); HEMOGLOBIN 7.8 GM/dL (10.7-15.3); MCH 28.8 pg (25.7-33.7); MCHC 34.1 g/dl (32.0-36.0); MEAN CELL VOLUME 84.6 fl (80-96); MEAN PLT VOLUME 7.6 fl (7.5-11.1); MONO % 6.9 % (3.8-10.2); NEUT % 69.6 % (42.8-82.8); PLATELET COUNT 314 K/MM3 (134-434); RBC 2.72 M/mm3 (3.60-5.2); RDW 14.5 % (11.6-15.6); WHITE BLOOD COUNT 11.5 K/mm3 (4.0-10.0)
[2020-10-14] MEDS ORDERED: DEXTROSE 5%-WATER - 50 ML IVPB ONE (09:04)
[2020-10-14 09:18] LABS: ALBUMIN 2.4 g/dl (3.4-5.0); CALCIUM 8.7 mg/dL (8.5-10.1)
[2020-10-14 09:19] LABS: BLOOD UREA NITROGEN 8.2 mg/dL (7-18)
[2020-10-14 09:22] LABS: CREATININE 0.7 mg/dL (0.55-1.3)
[2020-10-14 09:23] LABS: BILIRUBIN,TOTAL 0.5 mg/dL (0.2-1); TOT PROT 7.2 g/dl (6.4-8.2)
[2020-10-14] MEDS: ENOXAPARIN NA (PORCINE) 40 MG/0.4 ML DISP.SYRIN SQ SCH (09:24)
[2020-10-14] MEDS: AMINO ACIDS/PROTEIN HYDROLYS 30 ML LIQUID.PKT PO SCH (09:24)
[2020-10-14] MEDS: MULTIVITAMINS THER W-MINERALS COMBO TABLET (FP) PO SCH (09:25)
[2020-10-14] MEDS: FERROUS SO4 325 MG TABLET (FP) PO SCH ×2 (09:25→12:35)
[2020-10-14] MEDS: FOLIC ACID 1 MG TABLET (FP) PO SCH (09:25)
[2020-10-14] MEDS: ASCORBIC ACID 500 MG TABLET (FP) PO SCH (09:25)
[2020-10-14] MEDS: traMADol HCL 50 MG TABLET PO PRN (11:01)
[2020-10-14] MEDS: BACITRACIN 15 GM TUBE TOPICAL OINTMENT TP SCH (12:26)
[2020-10-14 14:21] VITALS: BP 139/80; PULSE 71; TEMP 98.1
== END 2020-10-14 15:35 | disposition home health service (06) | DRG 363 ==
LOC: JER 22:11 → JERBED 10-08 00:06 → J8W 10-08 03:49
PROVIDERS: ADMIT Hospitalist; ATTEND Nurse Practitioner Family
PROC: 0JB60ZZ Excision of Chest Subcutaneous Tissue and Fascia, Open Approach (ICD-10-PCS; 2020-10-08)
PROC: 0HQT0ZZ Repair Right Breast, Open Approach (ICD-10-PCS; 2020-10-08)
PROC: 0HBT0ZZ Excision of Right Breast, Open Approach (ICD-10-PCS; principal; 2020-10-08 13:00)
DX: L73.2 Hidradenitis suppurativa (principal); N61.1 Abscess of the breast and nipple; D64.9 Anemia, unspecified; R73.03 Prediabetes; F12.90 Cannabis use, unspecified, uncomplicated; D72.829 Elevated white blood cell count, unspecified; E43 Unspecified severe protein-calorie malnutrition; Z68.21 Body mass index [BMI] 21.0-21.9, adult; R11.2 Nausea with vomiting, unspecified; L04.2 Acute lymphadenitis of upper limb
CPT/HCPCS: 36415; 71045-TC-FY; 80053; 80061; 83036; 83540; 83550; 83721; 83735; 84702; 85025; 85610; 85730; 86850; 86900; 86901; 87070; 87205; 88305-TC; 93005; 93010; 94760; 97116-GP; 97161-GP; 99285-25; C9803; G0463-25; G0480; J0131; Q9968; U0003; U0005

== ENCOUNTER 2021-03-09 15:32 | Emergency (ER) | payer OTHER ==
[2021-03-09 15:44] VITALS: BP 98/64; PULSE 90; TEMP 98.8; BMI 22.1
[2021-03-09] MEDS ORDERED: ACETAMINOPHEN 500 MG TABLET (FP) PO ONE (17:26)
[2021-03-09] MEDS ORDERED: ACETAMINOPHEN 500 MG TABLET (FP) ONE (17:28)
== END 2021-03-09 17:30 | disposition home or self-care (01) ==
LOC: JER 15:32
DX: L02.211 Cutaneous abscess of abdominal wall (principal)
CPT/HCPCS: 99283-25

== ENCOUNTER 2021-03-14 07:47 | Inpatient (IN) | payer OTHER ==
[2021-03-14] MEDS ORDERED: ACETAMINOPHEN 1000 MG/100 ML VIAL IVPB ONE (08:37)
[2021-03-14] MEDS ORDERED: SODIUM CHLORIDE 0.9% 500 ML INFUS.BAG IV ONE (08:37)
[2021-03-14] MEDS ORDERED: ACETAMINOPHEN INJECTION 100 ML IVPB ONE (09:21)
[2021-03-14 10:17] LABS: BASO % 0.4 % (0-2.0); EOS % 1.2 % (0-4.5); HEMOGLOBIN 8.4 GM/dL (10.7-15.3); LYMPH % 10.7 % (8-40); MCH 28.1 pg (25.7-33.7); MCHC 35.1 g/dl (32.0-36.0); MEAN PLT VOLUME 6.8 fl (7.5-11.1); MONO % 5.1 % (3.8-10.2); NEUT % 82.6 % (42.8-82.8); PLATELET COUNT 385 10^3/uL (134-434); RDW 15.7 % (11.6-15.6)
[2021-03-14 10:23] LABS: INR 1.21 (0.83-1.09); PROTHROMBIN TIME (PATIENT) 14.2 SEC (9.7-13.0)
[2021-03-14 10:26] LABS: ACTIVATED PTT 28.4 SECONDS (25.2-36.5)
[2021-03-14 10:32] LABS: CALCIUM 8.9 mg/dL (8.5-10.1)
[2021-03-14 10:33] LABS: ALBUMIN 2.2 g/dl (3.4-5.0); BLOOD UREA NITROGEN 6.5 mg/dL (7-18)
[2021-03-14 10:35] LABS: CREATININE 0.5 mg/dL (0.55-1.3)
[2021-03-14 10:36] LABS: BILIRUBIN,TOTAL 0.2 mg/dL (0.2-1); TOT PROT 8.2 g/dl (6.4-8.2)
[2021-03-14] MEDS ORDERED: AMPICILLIN NA/SULBACTAM NA 3 GM in SODIUM CHLORIDE 100 ML IVPB ONE (13:19)
[2021-03-14] MEDS ORDERED: PT OWN MED DRAWER 7, Y5N ONE (14:16)
[2021-03-14] MEDS ORDERED: ACETAMINOPHEN 325 MG TABLET (FP) PO PRN (14:28)
[2021-03-14] MEDS: FERROUS SO4 325 MG TABLET (FP) PO SCH (21:25)
[2021-03-14] MEDS: ACETAMINOPHEN 1000 MG/100 ML VIAL IVPB PRN (21:26)
[2021-03-15 01:42] VITALS: BMI 19.9
[2021-03-15] MEDS: ACETAMINOPHEN 1000 MG/100 ML VIAL IVPB PRN ×2 (05:51→13:15)
[2021-03-15 08:44] LABS: BASO % 0.6 % (0-2.0); EOS % 2.8 % (0-4.5); HEMATOCRIT 22.3 % (32.4-45.2); HEMOGLOBIN 7.6 GM/dL (10.7-15.3); LYMPH % 9.5 % (8-40); MCHC 34.1 g/dl (32.0-36.0); MONO % 4.4 % (3.8-10.2); NEUT % 82.7 % (42.8-82.8); PLATELET COUNT 342 10^3/uL (134-434); RBC 2.72 M/mm3 (3.60-5.2); RDW 16.4 % (11.6-15.6); WHITE BLOOD COUNT 14.8 K/mm3 (4.0-10.0)
[2021-03-15] MEDS ORDERED: SODIUM CHLORIDE 1,000 ML IV SCH ×2 (08:45→14:46)
[2021-03-15 09:04] LABS: CALCIUM 8.4 mg/dL (8.5-10.1)
[2021-03-15 09:05] LABS: ALBUMIN 1.8 g/dl (3.4-5.0); BLOOD UREA NITROGEN 8.3 mg/dL (7-18)
[2021-03-15 09:07] LABS: CREATININE 0.4 mg/dL (0.55-1.3)
[2021-03-15 09:09] LABS: BILIRUBIN,TOTAL 0.3 mg/dL (0.2-1)
[2021-03-15] MEDS: FERROUS SO4 325 MG TABLET (FP) PO SCH ×3 (09:48→17:35)
[2021-03-15] MEDS ORDERED: ASCORBIC ACID 500 MG TABLET (FP) PO SCH (10:00)
[2021-03-15] MEDS ORDERED: PRENATAL VITAMINS W/ FOLIC ACID TABLET (FP) PO SCH (10:00)
[2021-03-15] MEDS ORDERED: FOLIC ACID 1 MG TABLET (FP) PO SCH ×2 (10:00)
[2021-03-15] MEDS ORDERED: PIPERACILLIN/TAZOB 3.375 GM 3.375 GM in DEXTROSE 5%-WATER - 50 ML IVPB SCH ×2 (12:00→12:45)
[2021-03-15] MEDS ORDERED: PROPOFOL 20 ML ONE ×2 (12:01)
[2021-03-15] MEDS ORDERED: ONDANSETRON 4 MG/2 ML VIAL IVPUSH PRN ×2 (12:09→14:46)
[2021-03-15] MEDS ORDERED: LACTATED RINGERS SOLUTION 1,000 ML IV SCH ×2 (12:15→14:46)
[2021-03-15] MEDS ORDERED: PIPERACILLIN/TAZOBACTAM 3.375 GM VIAL IVPB ONE ×3 (12:20→16:05)
[2021-03-15] MEDS ORDERED: BUPIVACAINE HCL/PF 0.5% (5MG/ML) 10 ML VIAL IJ ONE (12:21)
[2021-03-15] MEDS ORDERED: PT OWN MED DRAWER 7, Y5N ONE (16:04)
[2021-03-15] MEDS ORDERED: DEXTROSE 5%-WATER - 50 ML IVPB ONE (16:05)
[2021-03-15] MEDS: PIPERACILLIN/TAZOB 3.375 GM 3.375 GM in DEXTROSE 5%-WATER - 50 ML IVPB SCH (17:35)
[2021-03-15] MEDS: FOLIC ACID 1 MG TABLET (FP) PO SCH (17:35)
[2021-03-15] MEDS: PRENATAL VITAMINS W/ FOLIC ACID TABLET (FP) PO SCH (18:00)
[2021-03-15] MEDS ORDERED: ACETAMINOPHEN 1000 MG/100 ML VIAL IVPB ONE (18:37)
[2021-03-16] MEDS ORDERED: PIPERACILLIN/TAZOBACTAM 3.375 GM VIAL IVPB ONE ×3 (02:13→17:30)
[2021-03-16] MEDS ORDERED: DEXTROSE 5%-WATER - 50 ML IVPB ONE ×3 (02:13→17:30)
[2021-03-16] MEDS: PIPERACILLIN/TAZOB 3.375 GM 3.375 GM in DEXTROSE 5%-WATER - 50 ML IVPB SCH ×3 (02:42→18:04)
[2021-03-16] MEDS: ACETAMINOPHEN 325 MG TABLET (FP) PO PRN ×2 (03:47→20:30)
[2021-03-16] MEDS ORDERED: PT OWN MED DRAWER 7, Y5N ONE (09:33)
[2021-03-16 09:36] LABS: HEMATOCRIT 24.1 % (32.4-45.2); HEMOGLOBIN 8.1 GM/dL (10.7-15.3); MCH 27.7 pg (25.7-33.7); MCHC 33.5 g/dl (32.0-36.0); MEAN CELL VOLUME 82.6 fl (80-96); MEAN PLT VOLUME 6.9 fl (7.5-11.1); PLATELET COUNT 380 10^3/uL (134-434); RBC 2.92 M/mm3 (3.60-5.2); RDW 16.1 % (11.6-15.6); WHITE BLOOD COUNT 13.8 K/mm3 (4.0-10.0)
[2021-03-16] MEDS: FERROUS SO4 325 MG TABLET (FP) PO SCH ×3 (09:40→18:50)
[2021-03-16] MEDS: FOLIC ACID 1 MG TABLET (FP) PO SCH (09:40)
[2021-03-16] MEDS: PRENATAL VITAMINS W/ FOLIC ACID TABLET (FP) PO SCH (09:40)
[2021-03-16] MEDS: ASCORBIC ACID 500 MG TABLET (FP) PO SCH (09:40)
[2021-03-16 09:54] LABS: CALCIUM 8.6 mg/dL (8.5-10.1)
[2021-03-16 09:55] LABS: BLOOD UREA NITROGEN 6.6 mg/dL (7-18); MAGNESIUM 1.8 mg/dL (1.8-2.4)
[2021-03-16 09:58] LABS: CREATININE 0.6 mg/dL (0.55-1.3); PHOSPHOROUS 2.9 mg/dL (2.5-4.9)
[2021-03-16] MEDS ORDERED: FOLIC ACID 1 MG TABLET (FP) PO SCH (10:00)
[2021-03-16] MEDS ORDERED: PRENATAL VITAMINS W/ FOLIC ACID TABLET (FP) PO SCH (10:00)
[2021-03-17] MEDS ORDERED: PIPERACILLIN/TAZOBACTAM 3.375 GM VIAL IVPB ONE ×3 (01:34→18:32)
[2021-03-17] MEDS ORDERED: DEXTROSE 5%-WATER - 50 ML IVPB ONE ×3 (01:34→18:33)
[2021-03-17] MEDS: PIPERACILLIN/TAZOB 3.375 GM 3.375 GM in DEXTROSE 5%-WATER - 50 ML IVPB SCH ×3 (01:58→18:36)
[2021-03-17 09:59] LABS: ALBUMIN 1.8 g/dl (3.4-5.0); BLOOD UREA NITROGEN 6.6 mg/dL (7-18); CALCIUM 8.7 mg/dL (8.5-10.1); MAGNESIUM 1.9 mg/dL (1.8-2.4)
[2021-03-17 10:02] LABS: CREATININE 0.5 mg/dL (0.55-1.3); PHOSPHOROUS 2.8 mg/dL (2.5-4.9)
[2021-03-17 10:04] LABS: BILIRUBIN,TOTAL 0.2 mg/dL (0.2-1)
[2021-03-17] MEDS ORDERED: PT OWN MED DRAWER 7, Y5N ONE (10:27)
[2021-03-17] MEDS: FERROUS SO4 325 MG TABLET (FP) PO SCH ×3 (10:34→18:36)
[2021-03-17] MEDS: FOLIC ACID 1 MG TABLET (FP) PO SCH (10:34)
[2021-03-17] MEDS: PRENATAL VITAMINS W/ FOLIC ACID TABLET (FP) PO SCH (10:35)
[2021-03-17] MEDS: ASCORBIC ACID 500 MG TABLET (FP) PO SCH (10:35)
[2021-03-17 13:23] LABS: HEMATOCRIT 21.5 % (32.4-45.2); HEMOGLOBIN 7.3 GM/dL (10.7-15.3); MEAN CELL VOLUME 82.3 fl (80-96); MEAN PLT VOLUME 7.3 fl (7.5-11.1); PLATELET COUNT 343 10^3/uL (134-434); RBC 2.61 M/mm3 (3.60-5.2); WHITE BLOOD COUNT 10.9 K/mm3 (4.0-10.0)
[2021-03-17] MEDS: ACETAMINOPHEN 325 MG TABLET (FP) PO PRN (22:31)
[2021-03-18] MEDS ORDERED: PIPERACILLIN/TAZOBACTAM 3.375 GM VIAL IVPB ONE ×3 (03:31→17:12)
[2021-03-18] MEDS ORDERED: DEXTROSE 5%-WATER - 50 ML IVPB ONE ×3 (03:31→17:12)
[2021-03-18] MEDS: PIPERACILLIN/TAZOB 3.375 GM 3.375 GM in DEXTROSE 5%-WATER - 50 ML IVPB SCH ×3 (03:38→17:21)
[2021-03-18] MEDS ORDERED: PT OWN MED DRAWER 7, Y5N ONE (08:47)
[2021-03-18 09:17] LABS: HEMATOCRIT 22.9 % (32.4-45.2); HEMOGLOBIN 7.9 GM/dL (10.7-15.3); MCH 28.2 pg (25.7-33.7); MCHC 34.5 g/dl (32.0-36.0); MEAN CELL VOLUME 81.8 fl (80-96); MEAN PLT VOLUME 7.1 fl (7.5-11.1); PLATELET COUNT 323 10^3/uL (134-434); RBC 2.79 M/mm3 (3.60-5.2); RDW 15.7 % (11.6-15.6); WHITE BLOOD COUNT 11.3 K/mm3 (4.0-10.0)
[2021-03-18 09:41] LABS: BLOOD UREA NITROGEN 7.9 mg/dL (7-18); CALCIUM 8.9 mg/dL (8.5-10.1)
[2021-03-18 09:44] LABS: CREATININE 0.4 mg/dL (0.55-1.3)
[2021-03-18] MEDS: ASCORBIC ACID 500 MG TABLET (FP) PO SCH (10:27)
[2021-03-18] MEDS: PRENATAL VITAMINS W/ FOLIC ACID TABLET (FP) PO SCH (10:27)
[2021-03-18] MEDS: FOLIC ACID 1 MG TABLET (FP) PO SCH (10:27)
[2021-03-18] MEDS: FERROUS SO4 325 MG TABLET (FP) PO SCH ×3 (10:27→17:21)
[2021-03-18] MEDS: ACETAMINOPHEN 325 MG TABLET (FP) PO PRN (14:55)
[2021-03-18] MEDS ORDERED: POLYETHYLENE GLYCOL (HEALTHYLAX) 3350 17 GM PACKET PO PRN (15:03)
[2021-03-18 15:55] VITALS: BP 96/47; PULSE 78; TEMP 98
== END 2021-03-18 19:02 | disposition home or self-care (01) | DRG 951 ==
LOC: JER 07:47 → JERBED 13:05 → J8W 19:30
PROVIDERS: ADMIT Internal Medicine; ATTEND Internal Medicine
PROC: 0H9V0ZZ Drainage of Bilateral Breast, Open Approach (ICD-10-PCS; 2021-03-15)
PROC: 0W9F0ZZ Drainage of Abdominal Wall, Open Approach (ICD-10-PCS; principal; 2021-03-15 16:00)
DX: O26.92 Pregnancy related conditions, unspecified, second trimester (principal); L02.211 Cutaneous abscess of abdominal wall; Z3A.18 18 weeks gestation of pregnancy; N61.1 Abscess of the breast and nipple; L73.2 Hidradenitis suppurativa; L02.213 Cutaneous abscess of chest wall; B95.7 Other staphylococcus as the cause of diseases classified elsewhere; D50.9 Iron deficiency anemia, unspecified
CPT/HCPCS: 36415; 36430; 36511; 76705-TC; 80048; 80053; 83540; 83550; 83735; 84100; 84702; 85025; 85027; 85610; 85730; 86850; 86900; 86901; 86922; 87040; 87070; 87076; 87081; 87205; 93005; 93010; 94760; 99285-25; C9803; J0131; P9038; P9058; U0003; U0005

== ENCOUNTER 2021-05-06 14:21 | Inpatient (IN) | payer OTHER ==
[2021-05-06] MEDS ORDERED: ACETAMINOPHEN 1000 MG/100 ML BAG IVPB ONE (16:16)
[2021-05-06] MEDS ORDERED: PIPERACILLIN/TAZOB 4.5 GM 4.5 GM in DEXTROSE 5%-WATER 100 ML IVPB ONE (16:16)
[2021-05-06] MEDS ORDERED: SODIUM CHLORIDE 0.9% 500 ML INFUS.BAG IV ONE (16:20)
[2021-05-06] MEDS ORDERED: ACETAMINOPHEN INJECTION 100 ML IVPB ONE (16:49)
[2021-05-06] MEDS ORDERED: PIPERACILLIN/TAZOB 4.5 GM 4.5 GM/100 ML BAG IVPB ONE (16:49)
[2021-05-06 19:26] LABS: HEMATOCRIT 25.4 % (32.4-45.2); HEMOGLOBIN 8.4 GM/dL (10.7-15.3); MCHC 33.1 g/dl (32.0-36.0); MEAN CELL VOLUME 84.4 fl (80-96); MEAN PLT VOLUME 7.2 fl (7.5-11.1); PLATELET COUNT 307 10^3/uL (134-434); RBC 3.01 M/mm3 (3.60-5.2); RDW 16.1 % (11.6-15.6); WHITE BLOOD COUNT 14.1 K/mm3 (4.0-10.0)
[2021-05-06 19:40] LABS: ALBUMIN 2.3 g/dl (3.4-5.0); CALCIUM 8.7 mg/dL (8.5-10.1)
[2021-05-06 19:42] LABS: BLOOD UREA NITROGEN 9.5 mg/dL (7-18)
[2021-05-06 19:44] LABS: CREATININE 0.5 mg/dL (0.55-1.3)
[2021-05-06 19:45] LABS: BILIRUBIN,TOTAL 0.2 mg/dL (0.2-1); TOT PROT 7.6 g/dl (6.4-8.2)
[2021-05-06 19:49] LABS: BASO % 0.5 % (0-2.0); EOS % 1.7 % (0-4.5); LYMPH % 13.5 % (8-40); NEUT % 80.3 % (42.8-82.8)
[2021-05-07] MEDS ORDERED: PIPERACILLIN/TAZOB 3.375 GM 3.375 GM in DEXTROSE 5%-WATER - 50 ML IVPB ONE (00:47)
[2021-05-07] MEDS ORDERED: PIPERACILLIN/TAZOB 3.375 GM 3.375 GM/50 ML BAG IVPB ONE (01:05)
[2021-05-07] MEDS ORDERED: ACETAMINOPHEN 325 MG TABLET (FP) PO ONE (02:02)
[2021-05-07] MEDS ORDERED: ACETAMINOPHEN 325 MG TABLET (FP) ONE (02:03)
[2021-05-07] MEDS: LIDOCAINE HCL 5% TOP OINTMENT 50 GM TUBE TP ONE ×2 (04:13→04:14)
[2021-05-07 04:39] VITALS: BMI 23.2
[2021-05-07] MEDS ORDERED: PIPERACILLIN/TAZOB 3.375 GM 3.375 GM in DEXTROSE 5%-WATER - 50 ML IVPB SCH (09:00)
[2021-05-07] MEDS ORDERED: PT OWN MED DRAWER 7, Y5N ONE (09:42)
[2021-05-07] MEDS ORDERED: DEXTROSE 5%-WATER - 50 ML IVPB ONE ×2 (09:43→16:47)
[2021-05-07] MEDS ORDERED: PIPERACILLIN/TAZOBACTAM 3.375 GM VIAL IVPB ONE ×2 (09:43→16:47)
[2021-05-07] MEDS: FOLIC ACID 1 MG TABLET (FP) PO SCH (09:46)
[2021-05-07] MEDS: ASCORBIC ACID 500 MG TABLET (FP) PO SCH (09:46)
[2021-05-07] MEDS: FERROUS SO4 325 MG TABLET (FP) PO SCH ×3 (09:46→17:47)
[2021-05-07] MEDS: ACETAMINOPHEN 325 MG TABLET (FP) PO PRN ×2 (09:47→19:22)
[2021-05-07] MEDS ORDERED: LIDOCAINE 1%/EPI 1:100000 (20 ML MULTI DOSE VIAL) IJ ONE (10:30)
[2021-05-07 12:34] LABS: HEMATOCRIT 25.8 % (32.4-45.2); HEMOGLOBIN 8.6 GM/dL (10.7-15.3); MCH 28.3 pg (25.7-33.7); MCHC 33.5 g/dl (32.0-36.0); MEAN CELL VOLUME 84.3 fl (80-96); MEAN PLT VOLUME 7.4 fl (7.5-11.1); PLATELET COUNT 345 10^3/uL (134-434); RBC 3.06 M/mm3 (3.60-5.2); RDW 16.2 % (11.6-15.6); WHITE BLOOD COUNT 13.2 K/mm3 (4.0-10.0)
[2021-05-07 12:53] LABS: CALCIUM 8.4 mg/dL (8.5-10.1)
[2021-05-07 12:55] LABS: ALBUMIN 2.1 g/dl (3.4-5.0); BLOOD UREA NITROGEN 10.7 mg/dL (7-18)
[2021-05-07 12:57] LABS: CREATININE 0.5 mg/dL (0.55-1.3)
[2021-05-07 12:59] LABS: BILIRUBIN,TOTAL 0.4 mg/dL (0.2-1); TOT PROT 7.1 g/dl (6.4-8.2)
[2021-05-07] MEDS: PRENATAL VITAMINS W/ FOLIC ACID TABLET (FP) PO SCH (13:37)
[2021-05-07] MEDS: PIPERACILLIN/TAZOB 3.375 GM 3.375 GM in DEXTROSE 5%-WATER - 50 ML IVPB SCH (17:47)
[2021-05-08] MEDS ORDERED: PIPERACILLIN/TAZOBACTAM 3.375 GM VIAL IVPB ONE ×2 (00:42→09:25)
[2021-05-08] MEDS ORDERED: DEXTROSE 5%-WATER - 50 ML IVPB ONE ×2 (00:43→09:25)
[2021-05-08] MEDS: PIPERACILLIN/TAZOB 3.375 GM 3.375 GM in DEXTROSE 5%-WATER - 50 ML IVPB SCH ×3 (01:51→17:07)
[2021-05-08] MEDS: FERROUS SO4 325 MG TABLET (FP) PO SCH ×3 (08:00→17:04)
[2021-05-08] MEDS: FOLIC ACID 1 MG TABLET (FP) PO SCH (09:55)
[2021-05-08 10:38] LABS: BASO % 0.6 % (0-2.0); EOS % 2.3 % (0-4.5); HEMATOCRIT 24.8 % (32.4-45.2); HEMOGLOBIN 8.3 GM/dL (10.7-15.3); LYMPH % 7.5 % (8-40); MCH 28.2 pg (25.7-33.7); MCHC 33.3 g/dl (32.0-36.0); MEAN CELL VOLUME 84.7 fl (80-96); MEAN PLT VOLUME 7.7 fl (7.5-11.1); MONO % 4.4 % (3.8-10.2); NEUT % 85.2 % (42.8-82.8); PLATELET COUNT 271 10^3/uL (134-434); RBC 2.93 M/mm3 (3.60-5.2); RDW 16.1 % (11.6-15.6); WHITE BLOOD COUNT 7.8 K/mm3 (4.0-10.0)
[2021-05-08 10:39] LABS: INR 1.29 (0.83-1.09); PROTHROMBIN TIME (PATIENT) 15.1 SEC (9.7-13.0)
[2021-05-08 10:41] LABS: ACTIVATED PTT 29.1 SECONDS (25.2-36.5)
[2021-05-08 10:57] LABS: CALCIUM 8.2 mg/dL (8.5-10.1)
[2021-05-08 10:59] LABS: BLOOD UREA NITROGEN 10.3 mg/dL (7-18); MAGNESIUM 1.7 mg/dL (1.8-2.4)
[2021-05-08 11:01] LABS: CREATININE 0.6 mg/dL (0.55-1.3); PHOSPHOROUS 2.7 mg/dL (2.5-4.9)
[2021-05-08] MEDS: PRENATAL VITAMINS W/ FOLIC ACID TABLET (FP) PO SCH (12:00)
[2021-05-08] MEDS: ASCORBIC ACID 500 MG TABLET (FP) PO SCH (12:10)
[2021-05-08] MEDS: ACETAMINOPHEN 325 MG TABLET (FP) PO PRN (23:28)
[2021-05-09] MEDS ORDERED: DEXTROSE 5%-WATER - 50 ML IVPB ONE ×2 (00:57→07:56)
[2021-05-09] MEDS ORDERED: PIPERACILLIN/TAZOBACTAM 3.375 GM VIAL IVPB ONE ×2 (00:57→07:56)
[2021-05-09] MEDS: PIPERACILLIN/TAZOB 3.375 GM 3.375 GM in DEXTROSE 5%-WATER - 50 ML IVPB SCH ×2 (01:04→10:47)
[2021-05-09] MEDS ORDERED: PT OWN MED DRAWER 7, Y5N ONE (07:56)
[2021-05-09] MEDS: FERROUS SO4 325 MG TABLET (FP) PO SCH ×2 (10:48→11:45)
[2021-05-09] MEDS: ASCORBIC ACID 500 MG TABLET (FP) PO SCH (10:48)
[2021-05-09] MEDS: PRENATAL VITAMINS W/ FOLIC ACID TABLET (FP) PO SCH (10:48)
[2021-05-09] MEDS: FOLIC ACID 1 MG TABLET (FP) PO SCH (10:49)
[2021-05-09 11:09] VITALS: BP 88/44; PULSE 99; TEMP 98.5
[2021-05-09] MEDS: ACETAMINOPHEN 325 MG TABLET (FP) PO PRN (11:45)
[2021-05-09] MEDS ORDERED: MAGNESIUM CL 64 MG TABLET.SA PO ONE (12:15)
[2021-05-09] MEDS ORDERED: AMOX TR/POT CLAV 875MG/125MG TABLETS (FP) PO SCH (17:30)
== END 2021-05-09 16:10 | disposition home or self-care (01) | DRG 566 ==
LOC: JER 14:21 → JERBED 23:33 → J7W 05-07 03:54
PROVIDERS: ADMIT Internal Medicine; ATTEND Internal Medicine
PROC: 0H9U0ZZ Drainage of Left Breast, Open Approach (ICD-10-PCS; principal; 2021-05-07)
DX: O91.112 Abscess of breast associated with pregnancy, second trimester (principal); Z3A.26 26 weeks gestation of pregnancy; O99.012 Anemia complicating pregnancy, second trimester; D64.9 Anemia, unspecified; O99.891 Other specified diseases and conditions complicating pregnancy; R73.03 Prediabetes; L73.2 Hidradenitis suppurativa
CPT/HCPCS: 36415; 76642-TC-LT; 80048; 80053; 83735; 84100; 85025; 85027; 85610; 85730; 87070; 87205; 93005; 93010; 99285-25; C9803; J0131; U0003; U0005

== ENCOUNTER 2021-08-09 06:53 | Inpatient (IN) | payer OTHER ==
[2021-08-09] MEDS: ELECTROLYTE-148 SOLN 1,000 ML IV SCH ×2 (07:30→09:15)
[2021-08-09] MEDS ORDERED: morphine SULFATE/PF 1 MG/2 ML (2cc Syringe - QUVA) ONE (07:40)
[2021-08-09] MEDS ORDERED: ceFAZolin SODIUM 1 GM VIAL ONE (07:40)
[2021-08-09] MEDS ORDERED: SODIUM CHLORIDE 0.9% P/F 10 ML VIAL IJ ONE ×2 (07:40→08:39)
[2021-08-09] MEDS ORDERED: ONDANSETRON 4 MG/2 ML VIAL ONE (07:40)
[2021-08-09] MEDS ORDERED: SUCCINYLCHOLINE CHLORIDE 200 MG/10 ML SYRINGE ONE (07:40)
[2021-08-09] MEDS ORDERED: PHENYLEPHRINE HCL 10 MG/1 ML SINGLE DOSE VIAL ONE (07:40)
[2021-08-09] MEDS ORDERED: ePHEDrine SULFATE 50 MG/1 ML AMPULE ONE (07:41)
[2021-08-09] MEDS ORDERED: PROPOFOL 20 ML ONE (07:41)
[2021-08-09] MEDS ORDERED: HEPARIN NA (PORCINE) 5,000 UNITS/ML 1ML VIAL SQ ONE (08:36)
[2021-08-09] MEDS ORDERED: PROMETHAZINE HCL 25 MG/1 ML VIAL IVPUSH ONE (08:36)
[2021-08-09] MEDS ORDERED: IBUPROFEN 800 MG/8 ML IJ IVPB PRN (08:38)
[2021-08-09] MEDS ORDERED: IBUPROFEN 600 MG TABLET (FP) PO PRN (08:38)
[2021-08-09] MEDS ORDERED: OXYTOCIN 20 UNITS in 0.9% NS 20 UNIT/1,000 ML INFUS.BAG IV ONE ×2 (08:38→13:12)
[2021-08-09] MEDS ORDERED: ACETAMINOPHEN 325 MG TABLET (FP) PO PRN (08:38)
[2021-08-09] MEDS ORDERED: METHYLERGONOVINE MALEATE 0.2 MG/1 ML AMP IM PRN (08:38)
[2021-08-09] MEDS ORDERED: KETOROLAC TROMETHAMINE 30 MG/1 ML VIAL ONE (08:39)
[2021-08-09] MEDS ORDERED: TRIAMCINOLONE ACETONIDE 40 MG/ML 10 ML VIAL SQ STA (08:41)
[2021-08-09 09:01] VITALS: BMI 26.3
[2021-08-09] MEDS ORDERED: CLINDAMYCIN PHOSPHATE 600 MG/4 ML VIAL ONE (09:38)
[2021-08-09] MEDS ORDERED: PROMETHAZINE HCL 25 MG/1 ML VIAL ONE (09:45)
[2021-08-09] MEDS: PRENATAL VITAMINS W/ FOLIC ACID TABLET (FP) PO SCH (09:55)
[2021-08-09] MEDS: FERROUS SO4 325 MG TABLET (FP) PO SCH ×2 (09:55→17:46)
[2021-08-09 10:16] LABS: OPIATES, URI NEGATIVE (NEGATIVE); URINE BARBITURATES NEGATIVE (NEGATIVE)
[2021-08-09 10:17] LABS: METHADONE, UR NEGATIVE (NEGATIVE); PHENCYCLIDINE,URINE NEGATIVE (NEGATIVE); URINE BENZODIAZEPINES NEGATIVE (NEGATIVE)
[2021-08-09 10:23] LABS: COCAINE, UR NEGATIVE (NEGATIVE); URINE AMPHETAMINES NEGATIVE (NEGATIVE)
[2021-08-09] MEDS ORDERED: ONDANSETRON 4 MG/2 ML VIAL IVPUSH PRN (11:53)
[2021-08-09] MEDS ORDERED: ACETAMINOPHEN 1000 MG/100 ML BAG IVPB PRN (11:53)
[2021-08-09 11:58] LABS: CORD BASE EXCESS -2.5 mmol/L (0-2); CORD HCO3 23.4 mmHg (20-29); CORD PCO2 44.7 mmHg (30-78); CORD pH 7.336 (7.14-7.44)
[2021-08-09 12:00] LABS: CORD HCO3 24.9 mmHg (20-29); CORD PCO2 58.3 mmHg (30-78); CORD pH 7.248 (7.14-7.44)
[2021-08-09] MEDS: CLINDAMYCIN 600MG PREMIX IVPB 600 MG/50 ML BAG IVPB SCH ×2 (13:04→17:48)
[2021-08-09] MEDS: IBUPROFEN 800 MG/8 ML IJ IVPB SCH ×3 (13:18→20:34)
[2021-08-09] MEDS: OXYTOCIN 20 UNITS in 0.9% NS 20 UNIT/1,000 ML INFUS.BAG IV SCH (13:19)
[2021-08-09] MEDS ORDERED: IBUPROFEN 800 MG/8 ML IJ IVPB ONE (13:30)
[2021-08-10] MEDS: OXYTOCIN 20 UNITS in 0.9% NS 20 UNIT/1,000 ML INFUS.BAG IV SCH (00:15)
[2021-08-10] MEDS: CLINDAMYCIN 600MG PREMIX IVPB 600 MG/50 ML BAG IVPB SCH (01:54)
[2021-08-10] MEDS: IBUPROFEN 800 MG/8 ML IJ IVPB SCH ×3 (04:48→20:05)
[2021-08-10 08:03] LABS: BASO % 0.2 % (0-2.0); EOS % 0.8 % (0-4.5); HEMATOCRIT 23.2 % (32.4-45.2); HEMOGLOBIN 7.8 GM/dL (10.7-15.3); LYMPH % 17.7 % (8-40); MCH 29.3 pg (25.7-33.7); MCHC 33.5 g/dl (32.0-36.0); MEAN CELL VOLUME 87.5 fl (80-96); MONO % 5.7 % (3.8-10.2); NEUT % 75.6 % (42.8-82.8); PLATELET COUNT 215 10^3/uL (134-434); RBC 2.66 M/mm3 (3.60-5.2); RDW 15.5 % (11.6-15.6)
[2021-08-10] MEDS ORDERED: BISACODYL 10 MG SUPP.RECT RC PRN (08:38)
[2021-08-10] MEDS: ENOXAPARIN NA (PORCINE) 30 MG/0.3 ML DISP.SYRIN SQ SCH (11:36)
[2021-08-10] MEDS: FERROUS SO4 325 MG TABLET (FP) PO SCH ×2 (11:38→18:26)
[2021-08-10] MEDS: PRENATAL VITAMINS W/ FOLIC ACID TABLET (FP) PO SCH (11:39)
[2021-08-10] MEDS: SIMETHICONE 80 MG TAB.CHEW (FP) PO PRN (20:06)
[2021-08-10] MEDS ORDERED: oxyCODONE HCL 5 MG TABLET PO PRN (20:38)
[2021-08-11] MEDS: oxyCODONE HCL 5 MG TABLET PO PRN ×3 (07:48→20:22)
[2021-08-11] MEDS: FERROUS SO4 325 MG TABLET (FP) PO SCH ×2 (09:44→18:23)
[2021-08-11] MEDS: ENOXAPARIN NA (PORCINE) 30 MG/0.3 ML DISP.SYRIN SQ SCH (09:44)
[2021-08-11] MEDS: PRENATAL VITAMINS W/ FOLIC ACID TABLET (FP) PO SCH (09:44)
[2021-08-11] MEDS: SIMETHICONE 80 MG TAB.CHEW (FP) PO PRN (20:22)
[2021-08-12] MEDS: SIMETHICONE 80 MG TAB.CHEW (FP) PO PRN (04:30)
[2021-08-12] MEDS: oxyCODONE HCL 5 MG TABLET PO PRN (04:31)
[2021-08-12 07:34] LABS: BASO % 0.4 % (0-2.0); EOS % 1.7 % (0-4.5); HEMATOCRIT 24.7 % (32.4-45.2); HEMOGLOBIN 8.3 GM/dL (10.7-15.3); LYMPH % 23.7 % (8-40); MCH 29.1 pg (25.7-33.7); MCHC 33.6 g/dl (32.0-36.0); MEAN CELL VOLUME 86.8 fl (80-96); MEAN PLT VOLUME 8.4 fl (7.5-11.1); MONO % 5.5 % (3.8-10.2); NEUT % 68.7 % (42.8-82.8); PLATELET COUNT 267 10^3/uL (134-434); RBC 2.84 M/mm3 (3.60-5.2); RDW 14.9 % (11.6-15.6)
[2021-08-12] MEDS: FERROUS SO4 325 MG TABLET (FP) PO SCH (08:57)
[2021-08-12] MEDS: PRENATAL VITAMINS W/ FOLIC ACID TABLET (FP) PO SCH (10:34)
[2021-08-12] MEDS: ENOXAPARIN NA (PORCINE) 30 MG/0.3 ML DISP.SYRIN SQ SCH (10:34)
[2021-08-12 15:07] VITALS: BP 126/80; PULSE 65; TEMP 98.4
== END 2021-08-12 16:20 | disposition home or self-care (01) | DRG 540 ==
LOC: JLDR 06:53 → J3W 14:40
PROVIDERS: ADMIT Obstetrics & Gynecology; ATTEND Obstetrics & Gynecology
PROC: 10D00Z1 Extraction of Products of Conception, Low, Open Approach (ICD-10-PCS; principal; 2021-08-09)
DX: O75.89 Other specified complications of labor and delivery (principal); B00.9 Herpesviral infection, unspecified; Z3A.39 39 weeks gestation of pregnancy; Z37.0 Single live birth
CPT/HCPCS: 36415; 36600; 80048; 80307; 82803; 85025; 85027; 85610; 85730; 86780; 86850; 86900; 86901; 88307-TC; C9803-CS; J1644; U0003; U0005

== ENCOUNTER 2022-01-04 04:03 | Inpatient (IN) | payer OTHER ==
[2021-12-31 15:08] VITALS: BMI 24.5
[2022-01-04] MEDS ORDERED: ceFAZolin SODIUM 1 GM VIAL ONE (13:25)
[2022-01-04] MEDS ORDERED: ONDANSETRON 4 MG/2 ML VIAL IVPUSH PRN (14:12)
[2022-01-04] MEDS ORDERED: oxyCODONE HCL 5 MG TABLET PO PRN (14:12)
[2022-01-04] MEDS ORDERED: LACTATED RINGERS SOLUTION 1,000 ML IV SCH (14:15)
[2022-01-04] MEDS ORDERED: DEXAMETHASONE SOD PHOSPHATE 4 MG/1 ML VIAL ONE (14:18)
[2022-01-04] MEDS ORDERED: PROPOFOL 20 ML ONE ×3 (14:18→17:04)
[2022-01-04] MEDS ORDERED: MIDAZOLAM HCL 2 MG/2 ML SINGLE DOSE VIAL ONE (14:19)
[2022-01-04] MEDS ORDERED: SUCCINYLCHOLINE CHLORIDE 200 MG/10 ML SYRINGE ONE (14:19)
[2022-01-04] MEDS ORDERED: KETOROLAC TROMETHAMINE 30 MG/1 ML VIAL ONE (14:20)
[2022-01-04] MEDS ORDERED: ACETAMINOPHEN INJECTION 100 ML IVPB ONE (14:21)
[2022-01-04] MEDS ORDERED: METHYLENE BLUE 50 MG/10 ML AMPUL ONE (14:28)
[2022-01-04] MEDS ORDERED: LIDOCAINE 1%/EPI 1:100000 (20 ML MULTI DOSE VIAL) ONE ×2 (14:44→16:46)
[2022-01-04] MEDS ORDERED: ceFAZolin 2 GRAM PREMIX BAG IVPB ONE (14:49)
[2022-01-04] MEDS ORDERED: METHYLENE BLUE 1% 10 MG/1 ML VIAL NR ONE (14:50)
[2022-01-04] MEDS ORDERED: LIDOCAINE 1%/EPI 1:100000 (50 ML MULTI DOSE VIAL) INF ONE ×2 (14:50)
[2022-01-04] MEDS ORDERED: BUPIVACAINE HCL/PF 0.25% (2.5MG/ML) 10 ML VIAL IJ ONE ×2 (14:50)
[2022-01-04] MEDS ORDERED: HYDROmorphone HCl 2 MG/ML VIAL ONE (14:58)
[2022-01-04] MEDS ORDERED: ROCURONIUM BROMIDE 50 MG/5 ML SYRINGE ONE (14:59)
[2022-01-04] MEDS ORDERED: BUPIVACAINE HCL/PF 0.25% (2.5MG/ML) 10 ML VIAL ONE (15:10)
[2022-01-04] MEDS ORDERED: NEOSTIGMINE METHYLSULFATE 0.5 MG/ML - 10 ML MDV ONE (16:02)
[2022-01-04] MEDS ORDERED: GLYCOPYRROLATE 0.2 MG/1 ML VIAL ONE ×2 (16:02)
[2022-01-04] MEDS ORDERED: BACITRACIN 15 GM TUBE TOPICAL OINTMENT ONE (17:10)
[2022-01-04] MEDS ORDERED: BACITRACIN 15 GM TUBE TOPICAL OINTMENT TP ONE (17:26)
[2022-01-04] MEDS: LACTATED RINGERS SOLUTION 1,000 ML IV SCH (18:35)
[2022-01-04] MEDS: oxyCODONE HCL 10 MG SUSTAINED ACTING TABLET PO SCH (22:17)
[2022-01-04] MEDS: CEFAZOLIN 1 GM in DEXTROSE 5%-WATER - 50 ML IVPB SCH (22:30)
[2022-01-05] MEDS: CEFAZOLIN 1 GM in DEXTROSE 5%-WATER - 50 ML IVPB SCH ×4 (02:16→22:02)
[2022-01-05] MEDS: oxyCODONE HCL 5 MG TABLET PO PRN (05:41)
[2022-01-05] MEDS: oxyCODONE HCL 10 MG SUSTAINED ACTING TABLET PO SCH (09:19)
[2022-01-05] MEDS ORDERED: ACETAMINOPHEN 325 MG TABLET (FP) PO PRN (10:51)
[2022-01-05 12:46] LABS: ALBUMIN 2.2 g/dl (3.4-5.0); BASO % 0.6 % (0-2.0); BLOOD UREA NITROGEN 6.9 mg/dL (7-18); CALCIUM 8.6 mg/dL (8.5-10.1); EOS % 0.8 % (0-4.5); HEMATOCRIT 24.6 % (32.4-45.2); HEMOGLOBIN 8.2 GM/dL (10.7-15.3); LYMPH % 14.2 % (8-40); MCHC 33.3 g/dl (32.0-36.0); MEAN CELL VOLUME 80.9 fl (80-96); MEAN PLT VOLUME 7.7 fl (7.5-11.1); MONO % 5.2 % (3.8-10.2); NEUT % 79.2 % (42.8-82.8); PLATELET COUNT 356 10^3/uL (134-434); RBC 3.03 M/mm3 (3.60-5.2); RDW 15.7 % (11.6-15.6)
[2022-01-05 12:47] LABS: MAGNESIUM 1.9 mg/dL (1.8-2.4)
[2022-01-05 12:49] LABS: CREATININE 0.5 mg/dL (0.55-1.3); PHOSPHOROUS 3.2 mg/dL (2.5-4.9)
[2022-01-05 12:51] LABS: BILIRUBIN,TOTAL 0.1 mg/dL (0.2-1); TOT PROT 7.2 g/dl (6.4-8.2)
[2022-01-05] MEDS: LACTATED RINGERS SOLUTION 1,000 ML IV SCH (14:16)
[2022-01-05 15:33] VITALS: RESP 18
[2022-01-05] MEDS ORDERED: ACETAMINOPHEN 1000 MG/100 ML BAG IVPB ONE (21:15)
[2022-01-06] MEDS: oxyCODONE HCL 5 MG TABLET PO PRN ×2 (01:35→13:45)
[2022-01-06] MEDS: CEFAZOLIN 1 GM in DEXTROSE 5%-WATER - 50 ML IVPB SCH ×3 (02:57→15:04)
[2022-01-06] MEDS: oxyCODONE HCL 10 MG SUSTAINED ACTING TABLET PO SCH ×2 (09:38→22:11)
[2022-01-06 10:06] LABS: BASO % 0.9 % (0-2.0); EOS % 1.8 % (0-4.5); HEMATOCRIT 25.8 % (32.4-45.2); HEMOGLOBIN 8.5 GM/dL (10.7-15.3); LYMPH % 25.1 % (8-40); MCH 26.8 pg (25.7-33.7); MCHC 33.1 g/dl (32.0-36.0); MEAN CELL VOLUME 80.9 fl (80-96); MEAN PLT VOLUME 7.6 fl (7.5-11.1); NEUT % 65.2 % (42.8-82.8); PLATELET COUNT 333 10^3/uL (134-434); RBC 3.19 M/mm3 (3.60-5.2); RDW 15.7 % (11.6-15.6); WHITE BLOOD COUNT 11.9 K/mm3 (4.0-10.0)
[2022-01-06 10:53] LABS: PHOSPHOROUS 3.1 mg/dL (2.5-4.9)
[2022-01-06 10:55] LABS: BILIRUBIN,TOTAL 0.2 mg/dL (0.2-1); TOT PROT 6.9 g/dl (6.4-8.2)
[2022-01-06 10:57] LABS: CREATININE 0.6 mg/dL (0.55-1.3)
[2022-01-06 11:07] LABS: BLOOD UREA NITROGEN 11.4 mg/dL (7-18)
[2022-01-06 11:08] LABS: ALBUMIN 2.1 g/dl (3.4-5.0); CALCIUM 8.3 mg/dL (8.5-10.1)
[2022-01-06 11:09] LABS: MAGNESIUM 1.8 mg/dL (1.8-2.4)
[2022-01-06] MEDS: AMOX TR/POT CLAV 875MG/125MG TABLETS (FP) PO SCH (22:10)
[2022-01-07] MEDS ORDERED: ACETAMINOPHEN 1000 MG/100 ML BAG IVPB PRN ×2 (07:56→09:27)
[2022-01-07] MEDS: AMOX TR/POT CLAV 875MG/125MG TABLETS (FP) PO SCH ×2 (08:54→17:20)
[2022-01-07 09:27] LABS: HEMATOCRIT 28.3 % (32.4-45.2); HEMOGLOBIN 9.5 GM/dL (10.7-15.3); MCHC 33.5 g/dl (32.0-36.0); MEAN CELL VOLUME 80.8 fl (80-96); MEAN PLT VOLUME 7.1 fl (7.5-11.1); PLATELET COUNT 362 10^3/uL (134-434); RDW 15.6 % (11.6-15.6); WHITE BLOOD COUNT 12.6 K/mm3 (4.0-10.0)
[2022-01-07] MEDS: oxyCODONE HCL 10 MG SUSTAINED ACTING TABLET PO SCH (09:50)
[2022-01-07] MEDS ORDERED: ENOXAPARIN NA (PORCINE) 40 MG/0.4 ML DISP.SYRIN SQ SCH (10:00)
[2022-01-07 10:16] LABS: ALBUMIN 2.3 g/dl (3.4-5.0); CALCIUM 8.7 mg/dL (8.5-10.1); MAGNESIUM 1.9 mg/dL (1.8-2.4)
[2022-01-07 10:17] LABS: BLOOD UREA NITROGEN 7.7 mg/dL (7-18)
[2022-01-07 10:19] LABS: CREATININE 0.6 mg/dL (0.55-1.3)
[2022-01-07 10:20] LABS: PHOSPHOROUS 3.2 mg/dL (2.5-4.9)
[2022-01-07 10:21] LABS: BILIRUBIN,TOTAL 0.4 mg/dL (0.2-1); TOT PROT 7.5 g/dl (6.4-8.2)
[2022-01-07 18:26] VITALS: BP 100/70; PULSE 81; TEMP 98.3
[2022-01-07] MEDS ORDERED: AMOX TR/POT CLAV 875MG/125MG TABLETS (FP) PO SCH (20:26)
== END 2022-01-07 18:25 | disposition home or self-care (01) | DRG 363 ==
LOC: JASUSAT 04:03 → SUATTDRO 04:03 → JASU-SURG 04:03 → J5S 18:32 → JASUSAT 01-06 03:24 → J5S 01-06 03:25
PROVIDERS: ADMIT Internal Medicine; ATTEND Internal Medicine
PROC: 0HBU0ZX Excision of Left Breast, Open Approach, Diagnostic (ICD-10-PCS; 2022-01-04)
PROC: 0HD Skin and Breast, Extraction (ICD-10-PCS; 2022-01-04)
PROC: 0HBT0ZZ Excision of Right Breast, Open Approach (ICD-10-PCS; principal; 2022-01-04 14:00)
DX: L73.2 Hidradenitis suppurativa (principal); D50.9 Iron deficiency anemia, unspecified; N61.0 Mastitis without abscess
CPT/HCPCS: 36415; 80053; 80307; 81025; 83735; 84100; 85025; 85027; 87070; 87076; 87205; 88304-TC; 94760; 97116-GP; 97161-GP; Q9968

== ENCOUNTER 2023-07-21 04:36 | Inpatient (IN) | payer OTHER ==
[2023-07-19 08:55] VITALS: BMI 21.1
[2023-07-21] MEDS ORDERED: LIDOCAINE 1%/EPI 1:100000 (20 ML MULTI DOSE VIAL) ONE (08:06)
[2023-07-21] MEDS ORDERED: MIDAZOLAM HCL 2 MG/2 ML SINGLE DOSE VIAL ONE ×3 (08:43→12:17)
[2023-07-21] MEDS ORDERED: PROPOFOL 20 ML ONE ×3 (08:43→11:50)
[2023-07-21] MEDS ORDERED: BUPIVACAINE HCL/PF 0.5% (5MG/ML) 10 ML VIAL ONE (09:30)
[2023-07-21] MEDS: ceFAZolin SODIUM 1 GM VIAL IVPB ONE (09:55)
[2023-07-21] MEDS: LIDOCAINE 1%/EPI 1:100000 (20 ML MULTI DOSE VIAL) IJ ONE (10:13)
[2023-07-21] MEDS ORDERED: ISOSULFAN BLUE 50 MG/5 ML VIAL SQ ONE (10:14)
[2023-07-21] MEDS ORDERED: HYDROmorphone HCl 2 MG/ML VIAL ONE (11:09)
[2023-07-21] MEDS ORDERED: PROPOFOL 40 ML ONE (11:52)
[2023-07-21] MEDS: SODIUM HYPOCHLORITE 0.25%- 473 ML BULK BOTTLE TP ONE (12:44)
[2023-07-21] MEDS ORDERED: BACITRACIN ZINC 15 GM TUBE TOPICAL OINTMENT ONE (13:23)
[2023-07-21] MEDS: BACITRACIN ZINC 15 GM TUBE TOPICAL OINTMENT TP ONE (13:26)
[2023-07-21] MEDS ORDERED: oxyCODONE HCL 5 MG TABLET PO PRN ×2 (13:53)
[2023-07-21] MEDS ORDERED: ONDANSETRON 4 MG/2 ML VIAL IVPUSH PRN ×2 (13:53→14:42)
[2023-07-21] MEDS ORDERED: ACETAMINOPHEN 1000 MG/100 ML BAG IVPB PRN (13:54)
[2023-07-21] MEDS ORDERED: LACTATED RINGERS SOLUTION 1,000 ML IV SCH (14:00)
[2023-07-21] MEDS: ACETAMINOPHEN 1000 MG/100 ML BAG IVPB SCH (15:02)
[2023-07-21] MEDS: LACTATED RINGERS SOLUTION 1,000 ML IV SCH (15:30)
[2023-07-21] MEDS: IRON SUCROSE INJECTION 200 MG in SODIUM CHLORIDE 100 ML IVPB ONE (18:00)
[2023-07-21] MEDS: CEFAZOLIN 1 GM in DEXTROSE 5%-WATER - 50 ML IVPB SCH (18:00)
[2023-07-21] MEDS: oxyCODONE HCL 5 MG TABLET PO PRN (18:10)
[2023-07-21] MEDS: TRIMETHOBENZAMIDE HCL 200MG/2ML INJ IM ONE (22:13)
[2023-07-22 08:17] LABS: HEMATOCRIT 21.5 % (32.4-45.2); MCH 20.9 pg (25.7-33.7); MCHC 30.5 g/dl (32.0-36.0); MEAN CELL VOLUME 68.5 fl (80-96); MEAN PLT VOLUME 7.5 fl (7.5-11.1); PLATELET COUNT 400 10^3/uL (134-434); RBC 3.13 M/mm3 (3.60-5.2); RDW 17.5 % (11.6-15.6); WHITE BLOOD COUNT 15.4 K/mm3 (4.0-10.0)
[2023-07-22 08:27] LABS: HEMOGLOBIN 6.6 GM/dL (10.7-15.3)
[2023-07-22 08:38] LABS: CALCIUM 8.8 mg/dL (8.5-10.1)
[2023-07-22 08:41] LABS: CREATININE 0.5 mg/dL (0.55-1.3)
[2023-07-22 08:43] LABS: BILIRUBIN,TOTAL 0.3 mg/dL (0.2-1); TOT PROT 7.5 g/dl (6.4-8.2)
[2023-07-22 08:50] LABS: ALBUMIN 2.2 g/dl (3.4-5.0)
[2023-07-22] MEDS: ONDANSETRON 4 MG/2 ML VIAL IVPUSH ONE (09:38)
[2023-07-22] MEDS: IRON SUCROSE INJECTION 200 MG in SODIUM CHLORIDE 100 ML IVPB ONE (13:50)
[2023-07-22] MEDS: PIPERACILLIN/TAZOB 3.375 GM 3.375 GM in DEXTROSE 5%-WATER - 50 ML IVPB SCH (17:36)
[2023-07-22] MEDS: ONDANSETRON 4 MG/2 ML VIAL IVPUSH PRN (19:56)
[2023-07-23 09:00] LABS: BASO % 0.4 % (0-2.0); EOS % 0.5 % (0-4.5); HEMATOCRIT 23.6 % (32.4-45.2); LYMPH % 11.6 % (8-40); MCH 20.7 pg (25.7-33.7); MCHC 29.6 g/dl (32.0-36.0); MEAN CELL VOLUME 69.9 fl (80-96); MEAN PLT VOLUME 7.5 fl (7.5-11.1); MONO % 4.9 % (3.8-10.2); NEUT % 82.6 % (42.8-82.8); PLATELET COUNT 408 10^3/uL (134-434); RBC 3.37 M/mm3 (3.60-5.2); RDW 17.7 % (11.6-15.6); WHITE BLOOD COUNT 13.5 K/mm3 (4.0-10.0)
[2023-07-23 09:09] LABS: POTASSIUM 4.2 mmol/L (3.5-5.1)
[2023-07-23 09:15] LABS: ALBUMIN 2.3 g/dl (3.4-5.0); BLOOD UREA NITROGEN 7.5 mg/dL (7-18); CALCIUM 8.6 mg/dL (8.5-10.1)
[2023-07-23 09:18] LABS: CREATININE 0.6 mg/dL (0.55-1.3)
[2023-07-23 09:20] LABS: BILIRUBIN,TOTAL 0.3 mg/dL (0.2-1); TOT PROT 7.9 g/dl (6.4-8.2)
[2023-07-23 10:08] LABS: ANISOCYTOSIS 2+; MACROCYTOSIS 0; OVALOCYTE 1+
[2023-07-23] MEDS: oxyCODONE HCL 5 MG TABLET PO PRN (15:56)
[2023-07-23] MEDS: IRON SUCROSE INJECTION 200 MG in SODIUM CHLORIDE 100 ML IVPB ONE (17:49)
[2023-07-24 09:29] LABS: BASO % 0.8 % (0-2.0); HEMATOCRIT 22.8 % (32.4-45.2); LYMPH % 18.3 % (8-40); MCH 20.9 pg (25.7-33.7); MEAN CELL VOLUME 69.7 fl (80-96); MEAN PLT VOLUME 7.6 fl (7.5-11.1); MONO % 6.5 % (3.8-10.2); NEUT % 73.4 % (42.8-82.8); PLATELET COUNT 418 10^3/uL (134-434); RBC 3.28 M/mm3 (3.60-5.2); RDW 17.4 % (11.6-15.6); WHITE BLOOD COUNT 12.4 K/mm3 (4.0-10.0)
[2023-07-24 09:41] LABS: HEMOGLOBIN 6.9 GM/dL (10.7-15.3)
[2023-07-24 09:42] LABS: POTASSIUM 3.7 mmol/L (3.5-5.1)
[2023-07-24 09:46] LABS: CALCIUM 8.4 mg/dL (8.5-10.1)
[2023-07-24 09:47] LABS: ALBUMIN 2.2 g/dl (3.4-5.0); BLOOD UREA NITROGEN 7.2 mg/dL (7-18)
[2023-07-24 09:50] LABS: CREATININE 0.6 mg/dL (0.55-1.3)
[2023-07-24 09:52] LABS: BILIRUBIN,TOTAL 0.3 mg/dL (0.2-1); TOT PROT 7.4 g/dl (6.4-8.2)
[2023-07-24 11:34] LABS: INR 1.47 (0.83-1.09)
[2023-07-24] MEDS: IRON SUCROSE INJECTION 200 MG in SODIUM CHLORIDE 100 ML IVPB ONE (13:54)
[2023-07-24] MEDS: ONDANSETRON *ODT* 4 MG TABLET SL SCH (13:54)
[2023-07-24] MEDS: AMINO ACIDS 4.25%/D5W 1,000 ML IV SCH (13:54)
[2023-07-24] MEDS ORDERED: ONDANSETRON 4 MG/2 ML VIAL IVPUSH PRN (14:20)
[2023-07-25 09:19] LABS: BASO % 0.7 % (0-2.0); EOS % 1.8 % (0-4.5); HEMATOCRIT 22.6 % (32.4-45.2); LYMPH % 17.2 % (8-40); MCH 21.7 pg (25.7-33.7); MCHC 30.8 g/dl (32.0-36.0); MEAN CELL VOLUME 70.3 fl (80-96); MEAN PLT VOLUME 7.5 fl (7.5-11.1); MONO % 5.3 % (3.8-10.2); PLATELET COUNT 409 10^3/uL (134-434); RBC 3.22 M/mm3 (3.60-5.2); RDW 17.7 % (11.6-15.6); WHITE BLOOD COUNT 12.1 K/mm3 (4.0-10.0)
[2023-07-25] MEDS: MULTIVITAMINS (DAILY MVI) TABLET (FP) PO SCH (09:21)
[2023-07-25 09:25] VITALS: RESP 18
[2023-07-25] MEDS: SCOPOLAMINE HYDROBROMIDE 1 PATCH PATCH.TD72 TD SCH (10:00)
[2023-07-25 10:05] LABS: POTASSIUM 3.7 mmol/L (3.5-5.1)
[2023-07-25 10:30] LABS: CREATININE 0.6 mg/dL (0.55-1.3)
[2023-07-25 10:31] LABS: ALBUMIN 2.2 g/dl (3.4-5.0); BLOOD UREA NITROGEN 6.9 mg/dL (7-18); CALCIUM 8.6 mg/dL (8.5-10.1)
[2023-07-25 10:32] LABS: TOT PROT 7.5 g/dl (6.4-8.2)
[2023-07-25 10:33] LABS: BILIRUBIN,TOTAL 0.3 mg/dL (0.2-1)
[2023-07-25 16:05] VITALS: BP 110/74; PULSE 66; TEMP 99.5
== END 2023-07-25 16:21 | disposition home or self-care (01) | DRG 804 ==
LOC: JASU-SURG 04:36 → SUATTDRO 04:36 → JASUSAT 04:36 → J8W 15:53 → JERBED 07-23 05:16 → JASUSAT 07-23 05:16 → J8W 07-23 10:07
PROVIDERS: ADMIT Internal Medicine; ATTEND Nurse Practitioner Acute Care
PROC: 0JBL0ZZ Excision of Right Upper Leg Subcutaneous Tissue and Fascia, Open Approach (ICD-10-PCS; 2023-07-21)
PROC: 0Y9C00Z Drainage of Right Upper Leg with Drainage Device, Open Approach (ICD-10-PCS; 2023-07-21)
PROC: 0JR Subcutaneous Tissue and Fascia, Replacement (ICD-10-PCS; principal; 2023-07-21 09:30)
DX: D50.9 Iron deficiency anemia, unspecified (principal); L73.2 Hidradenitis suppurativa; R11.2 Nausea with vomiting, unspecified; R63.0 Anorexia; Z68.21 Body mass index [BMI] 21.0-21.9, adult
CPT/HCPCS: 36415; 74018-TC-FY; 80053; 82607; 82746; 83540; 83550; 85025; 85027; 85384; 85610; 85660; 86850; 86900; 86901; 86922; 87070; 87075; 87076; 87186; 87205; 88304-TC; 94760; J0131; J1756; Q0162